=== PATIENT | female | born 1935 | race African-American/Black ===

== ENCOUNTER 2019-02-15 09:47 | Emergency (ER) | payer OTHER ==
[2019-02-15] MEDS ORDERED: MECLIZINE HCL 12.5 MG TAB ONE (10:51)
[2019-02-15] MEDS ORDERED: NA CHLORIDE 0.9% 500 ML ONE (10:51)
--- NOTE | 2019-02-15 11:12 | RAD REPORT ---
EXAM DESCRIPTION: CT - Head Brain Wo Cont - 02/15/2019 11:01 am CLINICAL HISTORY: Dizziness COMPARISON: None TECHNIQUE: Computed axial tomography of the head was obtained. IV contrast was not requested. All CT scans are performed using dose optimization technique as appropriate and may include automated exposure control or mA/KV adjustment according to patient size. FINDINGS: An intracranial bleed is not seen . The ventricles are normal in caliber. No extra-axial fluid collection is noted. Mild to moderate low-density areas within periventricular, deep and subcortical white matter likely r epresent ischemic changes secondary to small vessel disease. Fluid within the sinuses/ mastoids is not seen. IMPRESSION: No acute intracranial abnormality is seen. If patient's symptoms persist MRI of the bra in would be recommended.
[2019-02-15 11:45] LABS: BUN Blood Urea Nitrogen 22 mg/dL (7-18); Bicarbonate 27 mmol/L (21-32); Glucose Level 108 mg/dL (74-106); Potassium 4.3 mmol/L (3.5-5.1); Sodium Level 144 mmol/L (136-145); Troponin (Emerg Dept Use Only) < 0.02 ng/mL (0.0-0.045)
[2019-02-15 12:09] LABS: Absolute Lymphocytes (CBC) 1.2 K/uL (0.7-4.9); Basophils % 0.9 % (0-1.3); Hematocrit 35.1 % (36.0-45.0); Lymphocytes % 24.2 % (15.3-44.8); MPV 8.8 fL (7.6-11.3); RBC Red Blood Cell Count 3.84 M/uL (3.86-4.86)
[2019-02-15 12:18] LABS: Protime INR 0.99
[2019-02-15 12:54] LABS: Urine Blood NEGATIVE (NEG); Urine Glucose NEGATIVE (NEG); Urine Protein NEGATIVE (NEG); Urine Specific Gravity 1.015 (1.005-1.030)
--- NOTE | 2019-02-15 13:24 | RAD REPORT ---
EXAM DESCRIPTION: MRI - Brain Wo Cont - 02/15/2019 1:13 pm CLINICAL HISTORY: DIZZINESS, weakness, stroke-like symptoms COMPARISON: CT head February 15 TECHNIQUE: Sagittal T1-weighted images were obtained along with axial PD, heavily T2-weighted and T2 -FLAIR images. Axial DWI and ADC mapping sequences were also obtained along with coronal heavily T2-w eighted images. FINDINGS: No intracranial hemorrhage, mass or acute infarction. There is no edema or shift of midlin e structures. No extra-axial fluid collections. Masters-matter/white matter junction is preserved. Signa l voids are seen as a normal finding in the major intracranial vessels. Patient has mild to moderate atrophy change. Ventricles are in proportion to the volume loss. Moderat e chronic ischemic changes seen throughout the cerebral white matter and extending into each thalamus . Brainstem chronic ischemic change also present. Mastoid air cells and paranasal sinuses are clear. No globe or orbital content abnormality. IMPRESSION: No acute infarction. No hemorrhage, mass or other acute intracranial finding. Mild to moderate degrees of atrophy and chronic ischemic changes are present. Ventricles are in propo rtion to the amount of volume loss.
--- NOTE | 2019-02-15 13:32 | ER ---
Nurse's Notes [facility] Name: Madan Godinez Age: 84 yrs Sex: Female : 1935 Arrival Date: 02/15/2019 Time: 09:49 Bed 19 Private MD: Diagnosis: Dizziness and giddiness;Dehydration Presentation: 02/15 10:14 Presenting complaint: Patient states: Woke up feeling dizzy, daughter reports BP was jl7 178/100, denies nausea, denies SIEGEL, dizzy has resolved. Transition of care: patient was not received from another setting of care. Onset of symptoms is unknown. Risk Assessment: Do you want to hurt yourself or someone else? Patient reports no desire to harm self or others. Initial Sepsis Screen: Does the patient meet any 2 criteria? No. Patient's initial sepsis screen is negative. Does the patient have a suspected source of infection? No. Patient's initial sepsis screen is negative. Care prior to arrival: None. 10:14 Method Of Arrival: Wheelchair jl7 10:14 Acuity: TRAY 3 jl7 Historical: - Allergies: 10:17 PENICILLINS; jl7 - Home Meds: 10:17 None [Active]; jl7 - PMHx: 10:17 None; jl7 - PSHx: 10:17 None; jl7 - Immunization history:: Adult Immunizations not up to date. - Social history:: Smoking status: Patient/guardian denies using tobacco. - Ebola Screening: : No symptoms or risks identified at this time. - Family history:: not pertinent. - Hospitalizations: : No recent hospitalization is reported. Screenin:26 Abuse screen: Denies threats or abuse. Denies injuries from another. Nutritional ca1 screening: No deficits noted. Tuberculosis screening: No symptoms or risk factors identified. Fall Risk IV access (20 points). Ambulatory Aid- Crutches/Cane/Walker (15 pts). Total Quintana Fall Scale indicates Low Risk Score (25-44 pts). Fall prevention measures have been instituted. Side Rails Up X 2 Family Present and informed to notify staff if they need to leave bedside As available Patient and Family Educated on Fall Prevention Program and strategies. Assessment: 10:26 General: Appears in no apparent distress. comfortable, Behavior is calm, cooperative, ca1 appropriate for age. Pain: Denies pain. Neuro: Level of Consciousness is awake, alert, obeys commands, Oriented to person, place, time, situation, Ruby Software Developer are equal bilaterally Moves all extremities. Speech is normal, Facial symmetry appears normal, Pupils are PERRLA, Intact Reports dizziness, since one time this morning upon waking up. Cardiovascular: Heart tones S1 S2 present Capillary refill < 3 seconds Patient's skin is warm and dry. Rhythm is sinus rhythm. Respiratory: Airway is patent Respiratory effort is even, unlabored, Respiratory pattern is regular, symmetrical, Breath sounds are clear bilaterally. GI: Abdomen is round non-distended, Bowel sounds present X 4 quads. Abd is soft and non tender X 4 quads. Patient currently denies nausea. : No deficits noted. No signs and/or symptoms were reported regarding the genitourinary system. EENT: No signs and/or symptoms were reported regarding the EENT system. Derm: Skin is intact, is healthy with good turgor, Skin is pink, warm \T\ dry. Musculoskeletal: Circulation, motion, and sensation intact. Capillary refill < 3 seconds, Range of motion: intact in all extremities. 10:47 Reassessment: Instructed on NPO. ca1 10:53 Reassessment: Pt to CT. ca1 11:30 Reassessment: Patient appears in no apparent distress at this time. Patient and/or ca1 family updated on plan of care and expected duration. Pain level reassessed. 12:23 Reassessment: Patient appears in no apparent distress at this time. Patient is alert, ca1 oriented x 3, equal unlabored respirations, skin warm/dry/pink. Pt ambulated to restroom with slow steady gait. No nausea and dizziness reported. 12:48 Reassessment: Pt taken to MRI. ca1 13:30 Reassessment: Patient appears in no apparent distress at this time. Patient is alert, ca1 oriented x 3, equal unlabored respirations, skin warm/dry/pink. Family at bedside. Vital Signs: 10:17 BP 153 / 82; Pulse 66; Resp 15 S; Temp 98.2(O); Pulse Ox 98% on R/A; Pain 0/10; jl7 11:30 BP 144 / 79; Pulse 69; Resp 16 S; Pulse Ox 99% on R/A; ca1 12:25 BP 165 / 81; Pulse 58; Resp 17 S; Pulse Ox 100% on R/A; ca1 13:30 BP 159 / 79; Pulse 62; Resp 17 S; Pulse Ox 100% on R/A; ca1 ED Course: 09:49 Patient arrived in ED. as 10:16 Triage completed. jl7 10:17 Arm band placed on right wrist. Patient placed in an exam room, on a stretcher. jl7 10:24 Mendoza Barron MD is Attending Physician. rn 10:26 Tanja Brady, VERNON is Primary Nurse. ca1 10:26 Patient has correct armband on for positive identification. Placed in gown. Bed in low ca1 position. Call light in reach. Side rails up X2. shipping processor on. Pulse ox on. NIBP on. Warm blanket given. 10:26 No provider procedures requiring assistance completed. ca1 10:[address] via stretcher. ca1 10:53 EKG done, by multi craft maintenance technician. reviewed by Mendoza Barron MD. at1 11:15 Initial lab(s) drawn, by ri, sent to lab. Inserted saline lock: 22 gauge in right ca1 antecubital area, using aseptic technique. Blood collected. 11:20 CT Head Brain wo Cont In Process Unspecified. EDMS 12:33 Urine collected: clean catch specimen, clear, kenan colored. jp3 12:49 Patient moved to MRI via wheelchair. ca1 13:04 Brain Wo Cont MRI In Process Unspecified. EDMS 13:52 IV discontinued, intact, bleeding controlled, No redness/swelling at site. Pressure ca1 dressing applied. Administered Medications: 10:53 Drug: Meclizine 50 mg Route: PO; ca1 12:25 Follow up: Response: No adverse reaction; Marked relief of symptoms ca1 11:16 Drug: NS 0.9% 500 ml Route: IV; Rate: bolus; Site: right antecubital; ca1 12:25 Follow up: Urine output 90 ml; Response: No adverse reaction; IV Status: Completed ca1 infusion; IV Intake: 500ml Intake: 12:25 IV: 500ml; Total: 500ml. ca1 Output: 12:25 Urine: 90ml; Total: 90ml. ca1 Outcome: 13:31 Discharge ordered by MD. rn 13:52 Discharged to home ambulatory, with family. ca1 13:52 Condition: stable 13:52 Discharge instructions given to patient, Instructed on discharge instructions, follow up and referral plans. medication usage, Demonstrated understanding of instructions, follow-up care, medications, Prescriptions given X 1. 13:52 Patient left the ED. ca1 Signatures: Dispatcher [employer] Sydney Espinoza Roman, MD MD rn Marcela Baig, dividing machine operator helper EKG Tat1 Issac Wilson RN RN jl7 Asher Schaeffer jp3 Tanja Brady RN RN ca1 Corrections: (The following items were deleted from the chart) 11:03 10:26 Fall Risk IV access (20 points). ca1 ca1
--- NOTE | 2019-02-15 13:33 | EDPHYS ---
Physician Documentation [facility] Name: Madan Godinez Age: 84 yrs Sex: Female : 1935 Arrival Date: 02/15/2019 Time: 09:49 Bed 19 Private MD: ED Physician Mendoza Barron HPI: 02/15 11:10 This 84 yrs old Black Female presents to ER via Wheelchair with complaints of High rn Blood Pressure. 11:10 The patient has elevated blood pressure and discovered this at home. Onset: The rn symptoms/episode began/occurred this morning. Modifying factors:. Severity of symptoms: At its worst the blood pressure was moderate, in the emergency department the blood pressure is improved. The patient has experienced a previous episode. The patient has not recently seen a physician. Reports woke up this morning and when tried to get out of bed was very dizzy, fell back into bed, no LOC, no fever or head injury, dizzy when walking, no other focal neurological complaint, no vision or speech changes. . 11:10 Has had vertigo before in past. . rn Historical: - Allergies: 10:17 PENICILLINS; jl7 - Home Meds: 10:17 None [Active]; jl7 - PMHx: 10:17 None; jl7 - PSHx: 10:17 None; jl7 - Immunization history:: Adult Immunizations not up to date. - Social history:: Smoking status: Patient/guardian denies using tobacco. - Ebola Screening: : No symptoms or risks identified at this time. - Family history:: not pertinent. - Hospitalizations: : No recent hospitalization is reported. ROS: 11:10 Constitutional: Negative for fever, chills, and weight loss, Eyes: Negative for injury, rn pain, redness, and discharge, Neck: Negative for injury, pain, and swelling, Cardiovascular: Negative for chest pain, palpitations, and edema, Respiratory: Negative for shortness of breath, cough, wheezing, and pleuritic chest pain, Abdomen/GI: Negative for abdominal pain, nausea, vomiting, diarrhea, and constipation, MS/Extremity: Negative for injury and deformity, Skin: Negative for injury, rash, and discoloration, Neuro: Negative for headache, weakness, numbness, tingling, and seizure. Exam: 11:10 Constitutional: This is a well developed, well nourished patient who is awake, alert, rn and in no acute distress. Head/Face: Normocephalic, atraumatic. Eyes: Pupils equal round and reactive to light, extra-ocular motions intact. No nystagmus ENT: MMM Cardiovascular: Regular rate and rhythm. No pulse deficits. Respiratory: No increased work of breathing, no retractions or nasal flaring. Abdomen/GI: soft, non-tender MS/ Extremity: Pulses equal, no cyanosis. Neurovascular intact. Full, normal range of motion. Equal circumference. Neuro: Awake and alert, GCS 15, oriented to person, place, time, and situation. Cranial nerves II-XII grossly intact. Motor strength 5/5 in all extremities. Sensory grossly intact. Cerebellar exam normal. Vital Signs: 10:17 BP 153 / 82; Pulse 66; Resp 15 S; Temp 98.2(O); Pulse Ox 98% on R/A; Pain 0/10; jl7 11:30 BP 144 / 79; Pulse 69; Resp 16 S; Pulse Ox 99% on R/A; ca1 12:25 BP 165 / 81; Pulse 58; Resp 17 S; Pulse Ox 100% on R/A; ca1 13:30 BP 159 / 79; Pulse 62; Resp 17 S; Pulse Ox 100% on R/A; ca1 MDM: 10:24 Patient medically screened. rn 12:33 ED course: Pt improved, ambulatory to bathroom without assistance or difficulty. . rn 13:29 Differential diagnosis: hypertensive crisis, Malignant HTN, CVA, intracerebral rn hemorrhage, vertigo. Data reviewed: vital signs, nurses notes, lab test result(s), EKG, radiologic studies, CT scan, MRI, and as a result, I will discharge patient. Counseling: I had a detailed discussion with the patient and/or guardian regarding: the historical points, exam findings, and any diagnostic results supporting the discharge/admit diagnosis, lab results, radiology results, the need for outpatient follow up, to return to the emergency department if symptoms worsen or persist or if there are any questions or concerns that arise at home. Response to treatment: the patient's symptoms have markedly improved after treatment, and as a result, I will discharge patient. Special discussion: I discussed with the patient/guardian in detail that at this point there is no indication for admission to the hospital. It is understood, however, that if the symptoms persist or worsen the patient needs to return immediately for re-evaluation. Based on the history and exam findings, there is no indication for further emergent testing or inpatient evaluation. I discussed with the patient/guardian the need to see the neurologist for further evaluation of the symptoms. I discussed with the patient/guardian the need to see the primary care provider for further evaluation of the symptoms. ED course: Pt improved, ambulatory, ct head/bloodwork/UA/MRI brain negative, will dc home as dehydration and possible vertigo. Will dc home with meclizine and pcp f/u. . 02/15 10:42 Order name: Basic Metabolic Panel; Complete Time: 12:25 rn 02/15 10:42 Order name: CBC with Diff; Complete Time: 12:25 rn 02/15 10:42 Order name: Protime (+inr); Complete Time: 12:25 rn 02/15 10:42 Order name: Ptt, Activated; Complete Time: 12:25 rn 02/15 10:42 Order name: Troponin (emerg Dept Use Only); Complete Time: 12:25 rn 02/15 12:36 Order name: Urine Dipstick--Ancillary (enter results); Complete Time: 12:55 em1 02/15 10:42 Order name: CT Head Brain wo Cont; Complete Time: 11:38 rn 02/15 10:42 Order name: EKG; Complete Time: 10:43 rn 02/15 10:42 Order name: Cardiac monitoring; Complete Time: 10:45 rn 02/15 10:42 Order name: EKG - Nurse/Tech; Complete Time: 10:53 rn 02/15 10:42 Order name: IV Saline Lock; Complete Time: 11:21 rn 02/15 11:29 Order name: Brain Wo Cont MRI; Complete Time: 13:29 rn 02/15 10:42 Order name: Labs collected and sent; Complete Time: 11:21 rn 02/15 10:42 Order name: NPO; Complete Time: 10:45 rn 02/15 10:42 Order name: O2 Per Protocol; Complete Time: 10:45 rn 02/15 10:42 Order name: O2 Sat Monitoring; Complete Time: 10:45 rn 02/15 10:42 Order name: Urine Dipstick-Ancillary (obtain specimen); Complete Time: 12:34 rn Administered Medications: 10:53 Drug: Meclizine 50 mg Route: PO; ca1 12:25 Follow up: Response: No adverse reaction; Marked relief of symptoms ca1 11:16 Drug: NS 0.9% 500 ml Route: IV; Rate: bolus; Site: right antecubital; ca1 12:25 Follow up: Urine output 90 ml; Response: No adverse reaction; IV Status: Completed ca1 infusion; IV Intake: 500ml Disposition: 02/15/19 13:31 Discharged to Home. Impression: Dizziness and giddiness, Dehydration. - Condition is Stable. - Discharge Instructions: Dehydration, Adult, Dizziness. - Prescriptions for Meclizine 25 mg Oral Tablet - take 1 tablet by ORAL route every 8-12 hours As needed; 30 tablet. - Medication Reconciliation Form, Thank You Letter, Antibiotic Education, Prescription Opioid Use form. - Follow up: Private Physician; When: As needed; Reason: Recheck today's complaints, Re-evaluation by your physician. - Problem is new. - Symptoms have improved. Signatures: Dispatcher [employer] EDMS Mendoza Barron MD MD rn Leal, Jahala, RN RN jl7 Tanja Brady RN RN ca1 Corrections: (The following items were deleted from the chart) 13:52 13:31 02/15/2019 13:31 Discharged to Home. Impression: Dizziness and giddiness; ca1 Dehydration. Condition is Stable. Forms are Medication Reconciliation Form, Thank You Letter, Antibiotic Education, Prescription Opioid Use. Follow up: Private Physician; When: As needed; Reason: Recheck today's complaints, Re-evaluation by your physician. Problem is new. Symptoms have improved. rn
[2019-02-15 14:08] VITALS: TEMP 98.2
[2019-02-15 14:10] VITALS: O2SAT 100
[2019-02-15 14:11] VITALS: BP 159/79
--- NOTE | 2019-02-15 22:56 | EKG ---
Test Date: 2019-02-15 Test Time: 10:52:06 Telesales Specialist: ANGELICA MEASUREMENT RESULTS: Intervals: Rate: 56 [place]: 226 QRSD: 90 QT: 410 QTc: 395 [place]: P: -11 [place]: 226 QRS: -9 T: 50 INTERPRETIVE STATEMENTS: Sinus bradycardia with 1st degree AV block Minimal voltage criteria for LVH, may be normal variant Borderline ECG No previous ECG available for comparison Electronically Signed On 02-15-19 22:55:21 MEETING/EVENT PLANNER by Woo Bernal
== END 2019-02-15 13:52 | disposition home or self-care (01) ==
LOC: ER 09:47
DX: E86.0 Dehydration (principal); Z88.0 Allergy status to penicillin
CPT/HCPCS: 93005; 85025; 80048; 36415; 85610; 85730; 81003; 84484; 70450; 70551; 96360; 99285; J7040; J8597

== ENCOUNTER 2021-09-24 15:45 | Observation (INO) | payer OTHER ==
[2021-09-24 17:04] LABS: Protime INR 1.6
--- NOTE | 2021-09-24 17:04 | RAD REPORT ---
EXAM DESCRIPTION: CT - Ct Stroke Brain Wo Cont - 09/24/2021 4:57 pm CLINICAL HISTORY: acute LLE weakness CVA symptomology COMPARISON: Head Brain Wo Cont dated 02/15/2019; Brain Wo Cont dated 02/15/2019 TECHNIQUE: All CT scans are performed using dose optimization technique as appropriate and may inclu de automated exposure control or mA/KV adjustment according to patient size. FINDINGS: No intracranial hemorrhage, hydrocephalus or extra-axial fluid collection.Moderate diffuse brain atrophy with chronic periventricular and deep white matter chronic microvascular ischemia.No a reas of brain edema or evidence of midline shift. The paranasal sinuses and mastoids are clear. The calvarium is intact. IMPRESSION: No acute intracranial abnormality. If there is continued clinical concern for CVA, MR imaging of the brain would be recommended. The findings were discussed with Dr Pollock in the ER on 09/24/2021 at 5 p.m. by telephone.
[2021-09-24 17:06] LABS: Absolute Lymphocytes (CBC) 1.2 K/uL (0.7-4.9); Lymphocytes % 21.5 % (15.3-44.8); MCV 94.6 fL (80-100); MPV 8.9 fL (7.6-11.3); RBC Red Blood Cell Count 3.59 M/uL (3.86-4.86)
--- NOTE | 2021-09-24 17:31 | RAD REPORT ---
EXAM DESCRIPTION: RAD - Chest Single View - 09/24/2021 5:20 pm CLINICAL HISTORY: LLE weakness Chest pain. COMPARISON: No comparisons FINDINGS: Portable technique limits examination quality. The lungs are grossly clear. The heart is normal in size. No displaced fractures. IMPRESSION: No acute intrathoracic process suspected.
--- NOTE | 2021-09-24 17:32 | RAD REPORT ---
EXAM DESCRIPTION: RAD - Ankle Left 3 View - 09/24/2021 5:20 pm CLINICAL HISTORY: PAIN COMPARISON: No comparisons FINDINGS: Diffuse osteopenia. There is moderate soft tissue swelling involving the distal left leg a nd ankle. Small moderate posterior and plantar calcaneal spurs. No acute fracture seen.
--- NOTE | 2021-09-24 18:47 | ER ---
Nurse's Notes [facility] Name: Madan Godinez Age: 86 yrs Sex: Female : 1935 Arrival Date: 09/24/2021 Time: 15:55 Bed 27 Private MD: Shikha Conde Diagnosis: Weakness;L arm L leg weakness;Ataxia, unspecified Presentation: 09/24 16:04 Chief complaint: Patient's son or daughter states: pt was walking with walker and she iw fell , but she's dragging her left leg and she can barely stand and she's leaning to the left , noticed it yesterday but after she fell it was worse. Coronavirus screen: At this time, the client does not indicate any symptoms associated with coronavirus-19. Ebola Screen: Patient negative for fever greater than or equal to 101.5 degrees Fahrenheit, and additional compatible Ebola Virus Disease symptoms Patient denies exposure to infectious person. Patient denies travel to an Ebola-affected area in the 21 days before illness onset. No symptoms or risks identified at this time. Initial Sepsis Screen: Does the patient meet any 2 criteria? No. Patient's initial sepsis screen is negative. Does the patient have a suspected source of infection? No. Patient's initial sepsis screen is negative. Risk Assessment: Do you want to hurt yourself or someone else? Patient reports no desire to harm self or others. Onset of symptoms was September 23, 2021. 16:04 Method Of Arrival: Wheelchair iw 16:04 Acuity: TRAY 3 iw Triage Assessment: 16:35 General: Appears in no apparent distress. Behavior is calm, cooperative. jg9 Historical: - Allergies: 16:06 PENICILLINS; iw - Immunization history:: Adult Immunizations Client reports receiving the 2nd dose of the Covid vaccine, Pneumococcal vaccine is not up to date, Flu vaccine is not up to date. - Social history:: Smoking status: Patient denies any tobacco usage or history of. Screenin:28 Abuse screen: Denies threats or abuse. Denies injuries from another. Nutritional jg9 screening: No deficits noted. Tuberculosis screening: No symptoms or risk factors identified. Fall Risk Fall in past 12 months (25 points). 18:50 Patient has been NPO before screening. The patient is alert, able to follow commands. jg9 The patient does not exhibit slurred or garbled speech The patient is not exhibiting difficulty speaking. The patient does not exhibit difficulty understanding words. The patient is able to swallow own secretions with no drooling or need for suction. Patient tolerated one teaspoon of water. No drooling, immediate coughing, gurgling, or clearing of the throat was noted. The patient tolerated 90mL of water. No drooling, immediate coughing, gurgling, or clearing of the throat was noted. The patient passed the bedside swallow screening. Oral medications may be given as ordered. Contact Physician for further diet orders. Assessment: 18:28 Pain: Denies pain. jg9 Vital Signs: 16:04 BP 120 / 69; Pulse 71; Resp 16 S; Temp 97.2; Pulse Ox 97% on R/A; iw 17:45 BP 141 / 66; Pulse 55; Resp 16 S; Pulse Ox 99% on R/A; jg9 18:30 BP 143 / 59; Pulse 61; Resp 19; Pulse Ox 100% on R/A; jg9 ED Course: 15:55 Patient arrived in ED. am2 15:55 Shikha Conde FNP-C is Private Physician. am2 16:06 Triage completed. iw 16:08 Charbel Pollock MD is Attending Physician. jr11 16:35 Arm band placed on right wrist. jg9 16:40 Shikha Chadwick RN is Primary Nurse. jg9 16:45 Inserted saline lock: 22 gauge in right antecubital area, using aseptic technique. jg9 Blood collected. 16:59 CT Stroke Brain w/o Contrast In Process Unspecified. EDMS 17:22 Stroke CXR 1 View In Process Unspecified. EDMS 17:22 Ankle Left 3 View XRAY In Process Unspecified. EDMS 18:29 Patient has correct armband on for positive identification. Bed in low position. Call jg9 light in reach. Side rails up X 1. 18:46 Thalia Price MD is Hospitalizing Provider. jr11 Administered Medications: No medications were administered Outcome: 18:47 Decision to Hospitalize by Provider. jr11 21:45 Patient left the ED. tw5 Signatures: Dispatcher [employer] EDAnum Jones RN RN iw Marcela Gaytan am2 Shanelle Michele tw5 Shikha Chadwick, VERNON RN jg9 Charbel Pollock MD MD jr11
--- NOTE | 2021-09-24 18:48 | EDPHYS ---
Physician Documentation [facility] Name: Madan Goidnez Age: 86 yrs Sex: Female : 1935 Arrival Date: 09/24/2021 Time: 15:55 Bed 27 Private MD: Shikha Conde ED Physician Charbel Pollock HPI: 09/24 16:29 This 86 yrs old Black Female presents to ER via Wheelchair with complaints of General jr11 Weakness, Fall Injury. 16:29 Details of fall: The patient fell from an upright position, while walking, and struck a jr11 concrete surface. Onset: The symptoms/episode began/occurred just prior to arrival. Associated injuries: The patient sustained L ankle. Severity of symptoms: At their worst the symptoms were moderate, in the emergency department the symptoms are unchanged. Also per the daughter has been having weakness on her on her left side, has been dragging her left side and fell over to her left side. Patient is on Eliquis. No LOC from her fall.. Historical: - Allergies: 16:06 PENICILLINS; iw - Immunization history:: Adult Immunizations Client reports receiving the 2nd dose of the Covid vaccine, Pneumococcal vaccine is not up to date, Flu vaccine is not up to date. - Social history:: Smoking status: Patient denies any tobacco usage or history of. ROS: 16:29 All other systems are negative. jr11 Exam: 16:29 Constitutional: This is a well developed, well nourished patient who is awake, alert, jr11 and in no acute distress. Head/Face: Normocephalic, atraumatic. Eyes: Extra-ocular motions intact. Lids and lashes normal. Conjunctiva and sclera are non-icteric and not injected. Cornea within normal limits. Periorbital areas with no swelling, redness, or edema. ENT: Nares patent. No nasal discharge, no septal abnormalities noted. Oropharynx with no redness, swelling, or masses, exudates, or evidence of obstruction, uvula midline. Mucous membranes moist. Neck: Trachea midline, no thyromegaly or masses palpated, and no cervical lymphadenopathy. Supple, full range of motion without nuchal rigidity, or vertebral point tenderness. No Meningismus. Chest/axilla: Normal chest wall appearance and motion. Nontender with no deformity. No lesions are appreciated. Cardiovascular: Regular rate and rhythm with a normal S1 and S2. No gallops, murmurs, or rubs. Normal PMI, no JVD. No pulse deficits. Respiratory: Lungs have equal breath sounds bilaterally, clear to auscultation and percussion. No rales, rhonchi or wheezes noted. No increased work of breathing, no retractions or nasal flaring. Abdomen/GI: Soft, non-tender, with normal bowel sounds. No distension or tympany. No guarding or rebound. No evidence of tenderness throughout. Skin: Warm, dry with normal turgor. Normal color with no rashes, no lesions, and no evidence of cellulitis. MS/ Extremity: Pulses equal, no cyanosis. Neurovascular intact. Full, normal range of motion except L ankle with diffuse TTP, mild edema Neuro: Awake and alert, GCS 15, oriented to person, place, time, and situation. No gross motor or sensory deficits. NIHSS=2 from LUE and LLE drift Vital Signs: 16:04 BP 120 / 69; Pulse 71; Resp 16 S; Temp 97.2; Pulse Ox 97% on R/A; iw 17:45 BP 141 / 66; Pulse 55; Resp 16 S; Pulse Ox 99% on R/A; jg9 18:30 BP 143 / 59; Pulse 61; Resp 19; Pulse Ox 100% on R/A; jg9 MDM: 16:10 Patient medically screened. [facility] 16:29 Differential diagnosis: abrasion, closed head injury, contusion, multiple trauma, jr11 sprain, strain. Data reviewed: vital signs, nurses notes. ED course: EKG interpreted by me shows normal sinus rhythm, left axis deviation, prolonged MD at [address] changes.. ED course: Patient is an 86-year-old female here with left side weakness, NIH stroke shows equal to 2, not a tPA candidate given that she is on Eliquis. Will speak with neurologist after work-up.. 18:44 ED course: Pt with L sided weakness, per neuro Julio admit for MRI, PT/OT. Not a TPA jr candidate. . 09/24 16:28 Order name: Basic Metabolic Panel; Complete Time: 19:01 [facility] 09/24 16:28 Order name: CBC with Diff; Complete Time: 17:17 09/24 16:28 Order name: Protime (+inr); Complete Time: 17:11 09/24 16:28 Order name: Ptt, Activated; Complete Time: 17:11 09/24 16:28 Order name: CT Stroke Brain w/o Contrast; Complete Time: 17:11 09/24 16:28 Order name: COVID-19 SARS RT PCR (Document "Date of Onset" if Symptomatic); Complete Time: 18:57 09/24 16:28 Order name: Stroke CXR 1 View; Complete Time: 18:05 09/24 16:28 Order name: EKG; Complete Time: 16:29 09/24 16:28 Order name: Cardiac monitoring; Complete Time: 16:43 09/24 16:28 Order name: EKG - Nurse/Tech; Complete Time: 16:43 09/24 16:28 Order name: IV Saline Lock; Complete Time: 18:24 09/24 16:28 Order name: Labs collected and sent; Complete Time: 18:24 09/24 16:32 Order name: Ankle Left 3 View XRAY; Complete Time: 18:05 09/24 16:28 Order name: NPO; Complete Time: 18:24 09/24 16:28 Order name: O2 Per Protocol; Complete Time: 18:24 09/24 16:28 Order name: O2 Sat Monitoring; Complete Time: 16:44 09/24 16:28 Order name: Stroke Swallow Screen; Complete Time: 18:25 Administered Medications: No medications were administered Disposition Summary: 09/24/21 18:47 Hospitalization Ordered Hospitalization Status: Observation [facility] Provider: Thalia Price [facility] Location: Telemetry/MedSurg (observation) [facility] Condition: Stable [facility] Problem: new 11 Symptoms: are unchanged 11 Bed/Room Type: Standard [facility] Room Assignment: 216(09/24/21 21:06) Diagnosis - Weakness jr11 - L arm L leg weakness jr11 - Ataxia, unspecified jr11 Forms: - Medication Reconciliation Form jr11 - SBAR form 11 Signatures: Dispatcher [employer] EDMS Aparna Evans RN RN mw Williams, Irene, RN RN iw Gilmore, Jennifer, RN RN jg9 Charbel Pollock MD MD jr11 Brooklyn Siegel PA PA sb3 Corrections: (The following items were deleted from the chart) 16:31 16:29 Constitutional: This is a well developed, well nourished patient who is awake, jr11 alert, and in no acute distress. Head/Face: Normocephalic, atraumatic. Eyes: Extra-ocular motions intact. Lids and lashes normal. Conjunctiva and sclera are non-icteric and not injected. Cornea within normal limits. Periorbital areas with no swelling, redness, or edema. ENT: Nares patent. No nasal discharge, no septal abnormalities noted. Oropharynx with no redness, swelling, or masses, exudates, or evidence of obstruction, uvula midline. Mucous membranes moist. Neck: Trachea midline, no thyromegaly or masses palpated, and no cervical lymphadenopathy. Supple, full range of motion without nuchal rigidity, or vertebral point tenderness. No Meningismus. Chest/axilla: Normal chest wall appearance and motion. Nontender with no deformity. No lesions are appreciated. Cardiovascular: Regular rate and rhythm with a normal S1 and S2. No gallops, murmurs, or rubs. Normal PMI, no JVD. No pulse deficits. Respiratory: Lungs have equal breath sounds bilaterally, clear to auscultation and percussion. No rales, rhonchi or wheezes noted. No increased work of breathing, no retractions or nasal flaring. Abdomen/GI: Soft, non-tender, with normal bowel sounds. No distension or tympany. No guarding or rebound. No evidence of tenderness throughout. Skin: Warm, dry with normal turgor. Normal color with no rashes, no lesions, and no evidence of cellulitis. MS/ Extremity: Pulses equal, no cyanosis. Neurovascular intact. Full, normal range of motion. Neuro: Awake and alert, GCS 15, oriented to person, place, time, and situation. No gross motor or sensory deficits. NIHSS=2 from LUE and LLE drift jr11 18:24 16:28 Accucheck ordered. [facility] jg9 21:06 18:47 jr mw
[2021-09-24 18:59] LABS: Potassium 3.7 mmol/L (3.5-5.1)
--- NOTE | 2021-09-24 19:41 | P.HP ---
Certification for Inpatient Patient admitted to: Observation With expected LOS: <2 Midnights Patient will require the following post-hospital care: None Practitioner: I am a practitioner with admitting privileges, knowledge of patient current condition, hospital course, and medical plan of care. Services: Services provided to patient in accordance with Admission requirements found in Title 42 Section 412.3 of the Code of Federal Regulations <Brooklyn Siegel - Last Filed: 09/24/21 22:48> Patient History Date of Service: 09/24/21 Reason for admission: CVA R/O History of Present Illness: Patient is an 86-year-old female with hypertension, hyperlipidemia and history of DVT on Eliquis who presented to the ED with daughter with complaints of left- sided weakness. Daughter reports that she noticed patient's left leg was dragging while walking and she fell onto her left side. No LOC. CT brain negative for acute processes. Labs, vitals, and EKG WNL. NIHSS 2 given LUE and LLE drift. No other deficits noted. Neurology was contacted but not recommend TNK as patient takes eliquis daily. He wishes for patient to be admitted for observation with MRI stroke protocol in the morning. Home medications list reviewed: Yes - Past Medical/Surgical History Diabetic: No -: Hypertension -: Hyperlipidemia -: DVT Past Surgical History: Patient denies surgical history Psychosocial/ Personal History: Patient lives at home with her daughter. - Family History Father -: Hypertension - Social History Smoking Status: Never smoker Alcohol use: No CD- Drugs: No Caffeine use: Yes Place of Residence: Home <[place] - Last Filed: 09/24/21 22:48> Date of Service: 09/24/21 <Thalia Price - Last Filed: 10/04/21 00:28> Allergies Penicillins Allergy (Verified 09/24/21 22:08) Anaphylaxis Home Medications: Apixaban [Eliquis] 5 mg PO BID 09/24/21 Donepezil HCl [Aricept] 10 mg PO BEDTIME 09/24/21 Lisinopril [Zestril] 10 mg PO DAILY 09/24/21 Nitrofuran Macro [Macrobid*] 100 mg PO BID #14 cap 09/25/21 Review of Systems Neurological: Weakness <Brooklyn Siegel - Last Filed: 09/24/21 22:48> Physical Examination - Physical Exam General: Alert, In no apparent distress HEENT: Atraumatic, PERRLA, EOMI, Sclerae nonicteric Neck: Supple, 2+ carotid pulse no bruit, No LAD, Without JVD or thyroid abnormality Respiratory: Clear to auscultation bilaterally, Normal air movement Cardiovascular: Regular rate/rhythm, Normal S1 S2 Gastrointestinal: Normal bowel sounds, No tenderness Musculoskeletal: No tenderness Integumentary: No rashes Neurological: Normal speech, Sensation intact, Normal affect, Abnormal strength - Studies Laboratory Data (last 24 hrs) 09/24/21 18:25: Sodium 144, Potassium 3.7, BUN 16, Creatinine 0.96, Glucose 121 H 09/24/21 16:50: PT 17.8 H, INR 1.60, APTT 36.0 09/24/21 16:50: WBC 5.6, Hgb 11.0 L, Hct 34.0 L, Plt Count 218 <Brooklyn Siegel - Last Filed: 09/24/21 22:48> Assessment and Plan - Problems (Diagnosis) (1) Left-sided weakness Status: Acute (2) Anticoagulant long-term use Status: Acute (3) Hyperlipidemia Status: Acute Qualifiers: Hyperlipidemia type: unspecified Qualified Code(s): E78.5 - Hyperlipidemia, unspecified (4) Hypertension Status: Chronic Qualifiers: Hypertension type: primary hypertension Qualified Code(s): I10 - Essential (primary) hypertension - Plan -Neuro checks overnight -MRI stroke protocol in morning -Neurology consulted -Reconcile and continue home medications -Continue home eliquis for VTE ppx -Full code Discharge Plan: Home Plan to discharge in: 24 Hours - Advance Directives Does patient have a Living Will: No Does patient have a Durable POA for Healthcare: No - Code Status/Comfort Care Code Status Assessed: Yes (Full) Critical Care: No Time Spent Managing Pts Care (In Minutes): 50 <Brooklyn Siegel - Last Filed: 09/24/21 22:48>
[2021-09-24] MEDS: APIXABAN 5 MG TABLET PO SCH (21:00)
[2021-09-24] MEDS ORDERED: ACETAMINOPHEN 500 MG TAB PO PRN (21:41)
[2021-09-24] MEDS ORDERED: ONDANSETRON 4 MG/2 ML VIAL IV PRN (21:41)
[2021-09-24 22:08] VITALS: BMI 21.6
[2021-09-25 06:16] LABS: Potassium 3.8 mmol/L (3.5-5.1)
[2021-09-25] MEDS ORDERED: POTASSIUM CL SA 10 MEQ TAB PO ONE (09:00)
[2021-09-25] MEDS: APIXABAN 5 MG TABLET PO SCH ×2 (09:08→20:12)
--- NOTE | 2021-09-25 09:22 | RAD REPORT ---
EXAM DESCRIPTION: MRI - MRA Head Wo Cont - 09/25/2021 8:46 am CLINICAL HISTORY: Left-side weakness COMPARISON: None. TECHNIQUE: Axial and coronal 3D [id number] image acquisition was performed. 3D rotational images were generated with source and reconstruction images reviewed. Horizontal and vertical axis rotation al views generated using MIP protocol. FINDINGS: No aneurysm or vascular malformation. Vertebrobasilar tortuosity is present without stenos is. 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 Ri ght anterior cerebral artery A1 segment is small as a normal variant. Bilateral posterior communicati ng arteries are present. No significant stenoses in the anterior or middle cerebral artery distributions. Patient has bilatera l small posterior cerebral arteries. Atherosclerotic changes are present. No named branch occlusion or vasculitis. Flow voids seen in the distal internal carotid arteries are believed to be artifacts and not thrombus . The contrast opacified MRA neck images extended to the cavernous ICA region with no filling defects seen. IMPRESSION: Atherosclerotic changes are identified but no named branch occlusion, vasculitis or othe r emergent MRA Head finding.
--- NOTE | 2021-09-25 09:44 | RAD REPORT ---
EXAM DESCRIPTION: MRI - Brain W/Wo Cont - 09/25/2021 8:46 am CLINICAL HISTORY: left sided weakness COMPARISON: MRA Head Wo Cont dated 09/25/2021; Ct Stroke Brain Wo Cont dated 09/24/2021; MRA Neck W/Wo Cont dated 09/25/2021 TECHNIQUE: Sagittal and axial T1-weighted images were obtained. Axial PD/heavily T2-weighted and T2- FLAIR images were obtained along with axial DWI/ADC mapping sequences. Coronal heavily T2 weighted s equence obtained. Axial and coronal post-contrast T1-weighted images were also obtained. A 13 ml Mul tihance contrast following utilized. FINDINGS: No intracranial hemorrhage, mass or acute infarction. There is no edema or shift of midli ne structures. No extra-axial fluid collections. Masters-matter/white matter junction is preserved. Sig nal voids are seen as a normal finding in the major intracranial vessels. Patient has moderate severity atrophy for age. Ventricles are in proportion to the volume loss. T2/IR signal abnormalities are seen throughout each cerebral hemisphere extending into each thalamus and i nto the ángela. This chronic ischemic pattern matches the CT study. Post-contrast images show normal enhancement. No dural thickening. Mastoid air cells and paranasal sinuses are clear. No acute bone finding. Patient has normal variant hyperostosis frontalis interna. IMPRESSION: No acute intracranial finding identifiable. Moderate severity atrophy with ventricles in proportion to volume loss. Prominent chronic ischemic ch anges seen throughout each cerebral hemisphere, bilateral thalami and ángela.
--- NOTE | 2021-09-25 09:46 | RAD REPORT ---
EXAM DESCRIPTION: MRI - MRA Neck W/Wo Cont - 09/25/2021 8:45 am CLINICAL HISTORY: Left-sided weakness COMPARISON: None TECHNIQUE: MR angiography of the cervical vasculature performed. Coronal imaging plane acquisition u tilized. A 13 MultiHance contrast volume was utilized. Coronal reformatted images were generated and reviewed. Vertical axis 3D rotational projections obtained using maximum intensity projection protoco l. FINDINGS: Aortic arch is 3 vessel configuration with no origins stenosis. There is tortuosity of the great vessels and vertebral arteries. Imaged portions of the subclavian arteries are unremarkable. N o vertebral artery origins stenosis seen. Vertebral arteries are codominant. Bilateral common carotid arteries show tortuosity but no dissection, stenosis or significant abnormal ity. Internal carotid arteries are also tortuous but without dissection, stenosis or significant find ing. Basilar artery is unremarkable. IMPRESSION: MRA neck imaging shows tortuosity of the vasculature but no stenosis, dissection or sign ificant atherosclerotic change identifiable.
[2021-09-25 11:39] LABS: Albumin 2.8 g/dL (3.4-5.0); Bilirubin Direct 0.6 mg/dL (0-0.2); Bilirubin Total 0.9 mg/dL (0.2-1.0); Protein, Total 7.1 g/dL (6.4-8.2)
[2021-09-25] MEDS: HYDRALAZINE HCL 20 MG/ML VIAL IV PRN (17:18)
--- NOTE | 2021-09-25 18:41 | RAD REPORT ---
EXAM DESCRIPTION: MRI - Lumbar Spine Wo Con - 09/25/2021 3:05 pm CLINICAL HISTORY: Left foot drop. Ataxia COMPARISON: None. TECHNIQUE: Sagittal T1, T2 and STIR weighted sequences were obtained. Axial T1 and T2 sequences were obtained through the lumbar disc levels. FINDINGS: Mild posterior subluxation L1 on L2. Mild spondylosis Mild spondylosis L2-3 and L3-4. Schmorl's node invaginating vertebral endplate of L2 Disc bulge, ligamentum flavum and facet hypertrophy L3-4. Minimal narrowing of thecal sac. Mild to mo derate narrowing of left neural foramina Mild anterior subluxation L4 on L5. Disc bulge, ligamentum flavum facet hypertrophy. Mild to moderate narrowing left neural foramina L5-S1 unremarkable Increased signal is present within the T10 vertebral body. 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 It is recommended that the patient have an MRI with contrast of lower thoracic spine for further evaluation
--- NOTE | 2021-09-25 19:26 | CON ---
Consultation called because of left lower extremity weakness. History Of Present Illness: Ms. Godinez is an 86-year-old right-handed patient with hy pertension, dyslipidemia, and a deep vein thrombosis, treated with Eliquis, who comes to [facility] on Tuesday with left leg weakness and falling. The patient herself noted weakness a few we eks ago, but did not notify the daughter. Her daughter, who was at bedside, said Tuesday, she was trying to walk and noted the left leg was dragging, and at one point when she tried to accompany the daughter to her physician visit, she said at one point she was next to her, the next moment she fell due to left lower extremity weakness. At [facility], head CT scan was negative for any acut e ischemic or hemorrhagic change. The study identified moderate chronic small-vessel ischemic diseas e. NIH stroke scale is 2 given left lower extremity weakness. There was report of the left upper ex tremity weakness, but not necessarily substantiated by the patient herself. There was a drift noted and perhaps loss of sensation on the left compared to right. The patient was not a candidate for tPA since her onset of symptoms is well beyond 4.5 hours . Furthermore, she was on Eliquis, w hich would contraindicate the use of tNKs or tPA. She was admitted for stroke workup. Her brain MRI identified chronic small-vessel ischemic disease with compensatory atrophy and ventricular dilatatio n suggests compensatory ventricular dilatation with cerebral atrophy. In addition, there was small-v essel disease noted in the thalamus and ángela and this was comparable to the findings on CT scan of [facility] head. Her magnetic resonance angiogram of her brain showed arthrosclerotic changes, but no named b ranch occlusion, no evidence of vasculitis, or any acute findings such as thrombus. Magnetic resonan ce angiogram of her neck showed no evidence of stenosis, dissection, or significant arthrosclerosis. Chest x-ray showed no acute cardiothoracic processes. X-ray of the ankle, which was slightly swolle n on the left, showed diffuse osteopenia, moderate soft tissue swelling involving the distal leg and ankle, small moderate posterior and plantar calcaneal spurs. Her laboratory study included a complet e blood count with differential, which shows essentially unremarkable except for slightly low hemoglo bin and hematocrit. INR 1.6. Her liver function studies were elevated with AST 371, ALT 422, and al kaline phosphate was elevated to 719. Kidney function was normal. Creatinine 0.76. She had a low a lbumin and pre-albumin and COVID testing was negative. Since hospitalization, she denies any worseni ng weakness in left lower extremity, perhaps slightly improved. She did ambulate with physical thera pist 150 feet with a rolling walker and contact guard assistance. She denies loss of balance. Past Medical History: As noted. Allergies: PENICILLIN. Medications: At home, Eliquis 5 mg twice daily, Atorvastatin 40 mg at bedtime, Aricept 10 mg at bedt darius, and Zestril 10 mg daily. Family History: Positive for hypertension in father. Social History: No alcohol, tobacco, or IV drugs. She does drink sodas including Sprite and some ca ffeinated beverages. Review of Systems: As noted, weakness in the left lower extremity longer than 1 week and that resulted in the tripping a nd falling due to left footdrop. Otherwise, a 10 point systems review is negative aside from problem s with memory and thinking and language and expression and comprehension. Physical Examination: Vital Signs: Blood pressure 131/63, pulse 64, respiratory rate 18, temperature 98.6, and oxygen satu ration 97% on room air. Weight 130 pounds, height 5 feet 5 inches, BMI 21.6. General: Ms. Godinez is sitting in a chair beside the bed. She is covered in blankets. Her daughter a nd are in the room. HEENT: She is normocephalic and atraumatic. Sclerae are anicteric. Oropharynx is pink and moist. Neck: Supple. Chest: Clear. Heart: Regular. Extremities: Show no significant edema or cyanosis. Her left lower extremity is atrophic compared t o the right in the area of the tibialis anterior. Neurological: She is alert and oriented to situation and person. She has decreased verbal fluency, but no talon expressive or receptive aphasias. On cranial nerve exam, no obvious focal deficits on 2 through 12. On motor examination, in the upper extremity, on the right 5/5 strength, on the left 5- /5 in the upper extremity proximally and distally; in the lower extremity, she is a 4+ for hip extens ion and knee extension and she is 2 to 3 for dorsiflexion on the left foot, plantar flexion is 4+ to 5/5 in the right lower extremity. She is 5/5 proximally and distally. Sensory exam, slight decrease d light touch temperature in the left lower compared to her right lower extremity and the left and ri ght upper extremity are intact. Coordination intact in upper and lower extremities. Reflexes are bi ceps, triceps are 1+; at the right patella she has 2 and at the left 0; and at the right heel 1, and at the left 0. Gait, she ambulated with a rolling walker, contact guard assistance. Did not fall or lose balance while covering 120 feet. Assessment: Ms. Godinez is an 86-year-old patient with a possible lumbar etiology for left lower footdr op versus a peripheral neuropathy recent involving perhaps the peroneal nerve at the fibular head. A lso, there may be a lumbar 5 level compression producing a footdrop. She does not have evidence of a ny acute ischemic stroke on MRI of brain. No evidence of infection, however, she does have significa nt liver dysfunction and should be evaluated further. Plan: 1.MRI of the lumbar spine without contrast. 2.She should ambulate with a walker at all times. 3.She may benefit from aggressive inpatient rehabilitation in the hospital fifth floor inpatient uni t. 4.She may maintain the Eliquis for DVT, Lipitor for dyslipidemia, and antihypertensive medications a s appropriate. 5.Once the patient's disposition is determined, if she is discharged home, follow up with Dr. Dane marie's office within a month. If she is able to go to the fifth floor unit, she will have rehabilitati on done upstairs, either way rehabilitation should be done. LB/MODL Voice ID: [id number] Report ID: [id number]
[2021-09-25] MEDS ORDERED: ATORVASTATIN 40 MG TAB PO SCH (21:00)
[2021-09-25] MEDS ORDERED: DONEPEZIL HCL 5 MG TAB PO SCH (21:00)
[2021-09-26 05:03] LABS: Potassium 3.8 mmol/L (3.5-5.1)
[2021-09-26] MEDS ORDERED: POTASSIUM CL SA 10 MEQ TAB PO ONE (07:30)
[2021-09-26] MEDS ORDERED: lisinopriL 10 MG TAB PO SCH (09:00)
--- NOTE | 2021-09-26 09:05 | EKG ---
Test Date: 2021-09-24 Test Time: 16:18:06 Thread Grinder Tool: CINDA MEASUREMENT RESULTS: Intervals: Rate: 68 MS: 266 QRSD: 136 QT: 426 QTc: 452 [place]: P: 67 MS: 266 QRS: -24 T: 43 INTERPRETIVE STATEMENTS: Sinus rhythm with 1st degree AV block with premature atrial complexes with aberrant conduction Right bundle branch block Abnormal ECG Compared to ECG 02/15/2019 10:52:06 Atrial premature complex(es) now present Aberrant conduction of supraventricular beat(s) now present Right bundle-branch block now present Sinus bradycardia no longer present Left ventricular hypertrophy no longer present Electronically Signed On 09-26-21 09:03:06 CDT by Toro Bishop
[2021-09-26 09:52] LABS: Albumin 2.9 g/dL (3.4-5.0); Bilirubin Direct 0.7 mg/dL (0-0.2); Bilirubin Total 1.2 mg/dL (0.2-1.0); Protein, Total 7.3 g/dL (6.4-8.2)
[2021-09-26 10:31] LABS: Protime INR 1.41
[2021-09-26] MEDS: HYDRALAZINE HCL 20 MG/ML VIAL IV PRN (11:34)
[2021-09-26 12:00] VITALS: O2SAT 96
--- NOTE | 2021-09-26 12:34 | RAD REPORT ---
EXAM DESCRIPTION: US - Abdomen Exam Complete - 09/26/2021 12:10 pm CLINICAL HISTORY: elevated liver enzymes COMPARISON: <Comparisons> FINDINGS: Gallbladder size is normal. No gallstones, wall thickening or pericholecystic fluid. Commo n bile duct is normal with no common duct stone identified. Liver and spleen are normal size. No focal lesions identified. Doppler evaluation shows no portal vei n abnormality. The pancreas is unremarkable. No hydronephrosis or suspicious mass in either kidney. Fullness of the right renal pelvis is present without hydronephrosis. Left kidney was difficult to visualize. Aorta is 2.3 cm diameter proximally with the mid aortic tapering to 1.6 cm. There is focal bulging of the distal aorta 2.4 cm. No dissection or significant mural thrombus identifiable. IMPRESSION: No gallbladder or biliary tree abnormality. Liver size is normal with no focal lesion. Distal abdominal aorta bulges 2.4 cm. No dissection or measurable mural thrombus within the aorta.
[2021-09-26] MEDS: APIXABAN 5 MG TABLET PO SCH (13:16)
[2021-09-26 13:48] VITALS: TEMP 97.5
[2021-09-26 14:16] VITALS: BP 141/69
--- OUTSIDE RECORDS SUMMARY | 2021-10-01 06:12 | XMS REPORT | Continuity of Care Document ---
:1935 Author Organization [facility] t Address [address] [place] [address] Care Team Providers Name Role Phone A_Hemant Attending Clinician Unavailable A_Danielrd Admitting Clinician Unavailable Payers Payer Name Policy Type Policy Number Effective Date Expiration Date S niecy [employer] (MEDICARE [id number] REPLACEMENT/ADVANTAG E - PPO) [employer] [place] - [id number] 2020 [employer] 00:00:00 (MEDICARE REPLACEMENT HMO) Problems This patient has no known problems. Allergies, Adverse Reactions, Alerts This patient has no known allergies or adverse reactions. Medications This patient has no known medications. Procedures This patient has no known procedures. Encounters Start End Encounter Admission Attending Care Care Encounter Source Date/Time Date/Time Type Type Clinicians Facility Department ID 2019-12-03 2019-12-03 Outpatient A[facility] [id number] [place] 12:23:00 12:23:00 [facility] 2019-12-03 2019-12-03 Outpatient A_Byrd [facility] [id number] [place] 12:23:00 12:23:00 [facility] Results This patient has no known results.
--- NOTE | 2021-10-04 00:30 | P.PN ---
Subjective Date of Service: 09/25/21 Subjective: Improving Clinical symptoms are improving. MRI of the brain was negative for CVA. Continue with MRI L-spine abdominal ultrasound prior to discharge. Review of Systems 10-point ROS is otherwise unremarkable Physical Examination - Vital Signs Temperature: 97.5 F Blood Pressure: 141/69 Pulse: 70 Respirations: 14 Pulse Ox (%): 97 - Physical Exam General: Alert, In no apparent distress HEENT: Atraumatic, PERRLA, EOMI Neck: Supple, JVD not distended Respiratory: Clear to auscultation bilaterally, Normal air movement Cardiovascular: Regular rate/rhythm, Normal S1 S2 Gastrointestinal: Normal bowel sounds, No tenderness Musculoskeletal: No tenderness Integumentary: No rashes Neurological: Normal speech, Normal tone, Normal affect Lymphatics: No axilla or inguinal lymphadenopathy - Studies Medications List Reviewed: Yes Assessment & Plan - Problems (Diagnosis) (1) Hyperlipidemia Status: Acute Qualifiers: Hyperlipidemia type: unspecified Qualified Code(s): E78.5 - Hyperlipidemia, unspecified (2) Left-sided weakness Status: Acute (3) Hypertension Status: Resolved Qualifiers: Hypertension type: primary hypertension Qualified Code(s): I10 - Essential (primary) hypertension - Plan MRI of the brain was negative. At this time will continue with MRI of the L- spine and abdominal ultrasound as well. At this time anticipate discharge home if workup is negative. Discharge Plan: Home Plan to discharge in: 24 Hours - Advance Directives Does patient have a Living Will: No Does patient have a Durable POA for Healthcare: No - Code Status/Comfort Care Code Status Assessed: Yes Code Status: Full Code Critical Care: No Time Spent Managing PTS Care (In Minutes): 34
--- NOTE | 2021-10-04 00:32 | P.DS ---
Discharge Date: 09/26/21 Disposition: DC HOME/HOME HEALTH CARE Discharge Condition: GOOD Reason for Admission: CVA R/O - Problems (1) Hyperlipidemia Status: Acute Qualifiers: Hyperlipidemia type: unspecified Qualified Code(s): E78.5 - Hyperlipidemia, unspecified (2) Left-sided weakness Status: Acute (3) Hypertension Status: Resolved Qualifiers: Hypertension type: primary hypertension Qualified Code(s): I10 - Essential (primary) hypertension Brief History of Present Illness: Patient is an 86-year-old female with hypertension, hyperlipidemia and history of DVT on Eliquis who presented to the ED with daughter with complaints of left- sided weakness. Daughter reports that she noticed patient's left leg was dragging while walking and she fell onto her left side. No LOC. CT brain negative for acute processes. Labs, vitals, and EKG WNL. NIHSS 2 given LUE and LLE drift. No other deficits noted. Neurology was contacted but not recommend TNK as patient takes eliquis daily. He wishes for patient to be admitted for observation with MRI stroke protocol in the morning. Hospital Course: Patient had significant workup including MRI of the L-spine which was negative for acute abnormalities. Patient also had abdominal ultrasound which revealed a small AAA but no other abnormalities. Liver function testing were improving. We have held off on statin therapy because of the elevation in liver function testing. She will need repeat testing done in 1-2 weeks. Patient clinically doing much better at this time is stable for discharge with home health. Vital Signs/Physical Exam: Temp Pulse Resp BP Pulse Ox 97.5 F 70 14 141/69 H 97 10/04/21 00:30 10/04/21 00:30 10/04/21 00:30 10/04/21 00:30 10/04/21 00:30 General: Alert, In no apparent distress, Oriented x3 Laboratory Data at Discharge: WBC 5.6 K/uL (4.3-10.9) 09/24/21 16:50 Hgb 11.0 g/dL (12.0-15.0) L 09/24/21 16:50 Hct 34.0 % (36.0-45.0) L 09/24/21 16:50 Plt Count 218 K/uL (152-406) 09/24/21 16:50 PT 15.6 SECONDS (9.5-12.5) H 09/26/21 09:15 INR 1.41 09/26/21 09:15 APTT 38.6 SECONDS (24.3-36.9) H 09/26/21 09:15 Sodium 142 mmol/L (136-145) 09/26/21 04:14 Potassium 3.8 mmol/L (3.5-5.1) 09/26/21 04:14 BUN 14 mg/dL (7-18) 09/26/21 04:14 Creatinine 0.74 mg/dL (0.55-1.3) 09/26/21 04:14 Glucose 83 mg/dL (74-106) 09/26/21 04:14 Total Bilirubin 1.2 mg/dL (0.2-1.0) H 09/26/21 09:15 AST 375 U/L (15-37) H* 09/26/21 09:15 ALT 408 U/L (12-78) H* 09/26/21 09:15 Alkaline Phosphatase 801 U/L (45-117) H 09/26/21 09:15 Home Medications: Apixaban [Eliquis] 5 mg PO BID 09/24/21 Donepezil HCl [Aricept] 10 mg PO BEDTIME 09/24/21 Lisinopril [Zestril] 10 mg PO DAILY 09/24/21 Nitrofuran Macro [Macrobid*] 100 mg PO BID #14 cap 09/25/21 New Medications: Nitrofuran Macro [Macrobid*] 100 mg PO BID #14 cap Physician Discharge Instructions: -DC IV and DC home -Follow-up with PCP in 1 to 2 weeks -Because of elevated liver function test; patient will need outpatient liver function tests rechecked in 2 to 4 weeks -Follow-up with Cardiology and Neurology in 1 to 2 weeks -Please call Dr. Price at [phone] if any questions regarding hospital stay -Please call nursing station at [phone] if any nursing or medication questions -Return to the emergency room if symptoms worsen -Refrain from alcohol use. Refrain from Tylenol/acetaminophen use. Diet: AHA Activity: Fall precautions Followup: Shikha Conde [employer] [Primary Care Provider] - (Call to schedule appointment.) Time spent managing pt's care (in minutes): 35
== END 2021-09-26 14:45 | disposition home health service (06) ==
LOC: ER 15:45 → EDBD 15:45 → ERHOLD 19:45 → 2ND 21:16
PROVIDERS: ADMIT Hospitalist; ATTEND Hospitalist
DX: R53.1 Weakness (principal); W19.XXXA Unspecified fall, initial encounter; I10 Essential (primary) hypertension; E78.5 Hyperlipidemia, unspecified; R27.0 Ataxia, unspecified; I67.89 Other cerebrovascular disease; M21.372 Foot drop, left foot; I71.4 Abdominal aortic aneurysm, without rupture; M85.872 Other specified disorders of bone density and structure, left ankle and foot; M77.32 Calcaneal spur, left foot; Z86.718 Personal history of other venous thrombosis and embolism; Z79.01 Long term (current) use of anticoagulants; Z79.899 Other long term (current) drug therapy; Z88.0 Allergy status to penicillin; Z20.822 Contact with and (suspected) exposure to COVID-19; Z82.49 Family history of ischemic heart disease and other diseases of the circulatory system
CPT/HCPCS: 93005; 85025; 80048 ×3; 36415 ×2; 82140; 85610 ×2; 80076 ×2; 85730 ×2; 70450; 71045; 73610; 72148; 70553; 70544; 70549; 76700; 97110; 97116; 97161; 99283; U0003; A9577; J0360 ×2; G0378 ×3

== ENCOUNTER 2021-10-03 14:37 | Emergency (ER) | payer OTHER ==
--- OUTSIDE RECORDS SUMMARY | 2021-10-03 14:40 | XMS REPORT | Continuity of Care Document ---
:[address] [facility] t Address [address] [place] [address] Care Team Providers Name Role Phone A_Hemant Attending Clinician Unavailable A_Danielrd Admitting Clinician Unavailable Payers Payer Name Policy Type Policy Number Effective Date Expiration Date S ourmumtaz [employer] (MEDICARE [id number] REPLACEMENT/ADVANTAG E - PPO) [employer] [place] - [id number] 2020 [employer] 00:00:00 (MEDICARE REPLACEMENT HMO) Problems This patient has no known problems. Allergies, Adverse Reactions, Alerts This patient has no known allergies or adverse reactions. Medications This patient has no known medications. Procedures This patient has no known procedures. Encounters Start End Encounter Admission Attending Care Care Encounter Source Date/Time Date/Time Type Type Clinicians Facility Department ID 2019-12-03 2019-12-03 Outpatient A[facility]rd [facility] [id number] [place] 12:23:00 12:23:00 [facility] 2019-12-03 2019-12-03 Outpatient A_Byrd [facility] [id number] [place] 12:23:00 12:23:00 12[facility] Results This patient has no known results.
--- NOTE | 2021-10-03 16:26 | RAD REPORT ---
EXAM DESCRIPTION: RAD - Chest Single View - 10/03/2021 4:21 pm CLINICAL HISTORY: SOB COMPARISON: Chest Single View dated 09/24/2021 FINDINGS: Lines: None. Lungs: No evidence of edema or pneumonia. Pleural: No significant pleural effusions or pneumothorax. Cardiac: The heart size is within normal limits. Bones: No acute fractures. Other: IMPRESSION: No acute cardiopulmonary disease.
[2021-10-03 16:42] LABS: Urine Blood Negative (Negative); Urine Glucose Negative (Negative); Urine Protein Negative (Negative); Urine Specific Gravity 1.015 (1.005-1.030)
[2021-10-03 16:46] LABS: Albumin 3.2 g/dL (3.4-5.0); Bilirubin Total 0.8 mg/dL (0.2-1.0); Magnesium 1.8 mg/dL (1.8-2.4); Potassium 4.2 mmol/L (3.5-5.1); Protein, Total 7.3 g/dL (6.4-8.2); Troponin High Sensitivity 26.9 pg/mL (<58.9)
[2021-10-03 17:04] LABS: Urine Bacteria <20 /HPF (<20); Urine RBC <5 /HPF (None Seen)
[2021-10-03 20:27] LABS: Absolute Lymphocytes (CBC) 2.1 K/uL (0.7-4.9); Lymphocytes % 42.2 % (15.3-44.8); MCV 93.1 fL (80-100); MPV 8.7 fL (7.6-11.3); RBC Red Blood Cell Count 3.76 M/uL (3.86-4.86)
--- NOTE | 2021-10-03 20:40 | ER ---
Nurse's Notes [facility] Name: Madan Godinez Age: 86 yrs Sex: Female : 1935 Arrival Date: 10/03/2021 Time: 14:39 Bed 6 Private MD: Shikha Conde Diagnosis: Muscle weakness (generalized);Dyspnea Presentation: 10/03 14:49 Chief complaint: Patient states: denies CP, stated difficulty breathing when moving vg1 around. Chief complaint: Patient's son or daughter states: noticed last night that pt was having difficulty walking stated "she gets real tired when she gets up to walk around and this morning it looked like she was having a hard time breathing" Stated pt was in the hospital a week ago for a UTI. Coronavirus screen: Vaccine status: Patient reports receiving the 2nd dose of the covid vaccine. Client denies travel out of the [place] in the last 14 days. Ebola Screen: Patient denies exposure to infectious person. Patient denies travel to an Ebola-affected area in the 21 days before illness onset. Initial Sepsis Screen: Does the patient meet any 2 criteria? No. Patient's initial sepsis screen is negative. Does the patient have a suspected source of infection? No. Patient's initial sepsis screen is negative. Risk Assessment: Do you want to hurt yourself or someone else? Patient reports no desire to harm self or others. Onset of symptoms was October 02, 2021. 14:49 Method Of Arrival: Wheelchair vg1 14:49 Acuity: TRAY 3 vg1 Triage Assessment: 14:52 General: Appears in no apparent distress. Behavior is quiet. Pain: Denies pain. Neuro: vg1 Level of Consciousness is awake, alert, obeys commands, Oriented to person, place, time, situation. Respiratory: Reports shortness of breath on exertion Onset: The symptoms/episode began/occurred yesterday, the patient has mild shortness of breath. Historical: - Allergies: 14:57 PENICILLINS; jl7 - Home Meds: 14:52 donepezil oral [Active]; Eliquis oral [Active]; Lisinopril Oral [Active]; vg1 - PMHx: 14:52 Hypertensive disorder; DVT; vg1 - Immunization history:: Adult Immunizations up to date. - Social history:: Smoking status: Patient denies any tobacco usage or history of. Screenin:59 Abuse screen: Denies threats or abuse. Denies injuries from another. Nutritional bp screening: No deficits noted. Tuberculosis screening: No symptoms or risk factors identified. Fall Risk None identified. Assessment: 14:59 General: SEE TRIAGE NOTE. bp 15:43 Reassessment: UNABLE TO OBTAIN BLOOD SPECIMEN. PHLEBOTOMY CONTACTED. bp 16:44 Reassessment: No changes from previously documented assessment. Patient and/or family bp updated on plan of care and expected duration. Pain level reassessed. Cardiovascular: Rhythm is sinus rhythm. Respiratory: Airway is patent Respiratory effort is even, unlabored, Breath sounds are clear bilaterally. 17:50 Reassessment: No changes from previously documented assessment. Patient and/or family bp updated on plan of care and expected duration. Pain level reassessed. Vital Signs: 14:49 BP 141 / 83; Pulse 69; Resp 16; Temp 99.0(TE); Pulse Ox 98% on R/A; Weight 58.97 kg; vg1 Height 5 ft. 4 in. (162.56 cm); Pain 0/10; 14:59 BP 179 / 94; Pulse 78; Resp 16; Pulse Ox 97% ; bp 15:43 BP 161 / 122; Pulse 63; Resp 16; Pulse Ox 100% ; bp 16:44 BP 180 / 88; Pulse 52; Resp 16; Pulse Ox 97% ; bp 17:50 BP 175 / 80; Pulse 57; Resp 16; Pulse Ox 98% ; bp 20:31 BP 161 / 82; Pulse 56; Resp 18 S; Pulse Ox 96% on R/A; as6 14:49 Body Mass Index 22.31 (58.97 kg, 162.56 cm) vg1 ED Course: 14:39 Patient arrived in ED. mr 14:39 Shikha Conde is Private Physician. mr 14:46 Rosie Chinchilla is Attending Physician. sd2 14:51 Triage completed. vg1 14:52 Arm band placed on. vg1 14:54 Wilmar Mendieta, RN is Primary Nurse. bp 14:59 Patient has correct armband on for positive identification. Bed in low position. Call bp light in reach. Side rails up X2. Adult w/ patient. 15:43 Inserted saline lock: 22 gauge in left antecubital area, using aseptic technique. bp 16:23 XRAY Chest (1 view) In Process Unspecified. EDMS 19:56 Attending Physician role handed off by Rosie Chinchilla sd2 19:56 Ambrocio Gonzalez DO is Attending Physician. sd2 20:39 Shikha Conde is Referral Physician. ms3 21:00 No provider procedures requiring assistance completed. IV discontinued, intact, as6 bleeding controlled, No redness/swelling at site. Pressure dressing applied. Administered Medications: No medications were administered Medication: 14:59 VIS not applicable for this client. bp Outcome: 20:40 Discharge ordered by MD. ms3 21:00 Discharged to home via wheelchair, with family. as6 21:00 Condition: stable 21:00 Discharge instructions given to patient, family, Instructed on discharge instructions, follow up and referral plans. Demonstrated understanding of instructions, follow-up care. 21:01 Patient left the ED. as6 Signatures: Dispatcher [employer] EDMO Rangel Valerie quesada WilsonIssac, RN RN jl7 Wilmar Mendieta RN RN Rosario Reno RN RN vg1 Ambrocio Gonzalez DO DO ms3 Krunal Varghese RN RN as6 Rosie Chinchilla sd2 Corrections: (The following items were deleted from the chart) 14:52 14:49 Chief complaint: Patient's son or daughter states: noticed last night that pt was vg1 having difficulty walking stated "she gets real tired when she gets up to walk around and this morning it looked like she was having a hard time breathing" vg1 14:52 14:49 Chief complaint: Patient states: denies CP, stated difficulty breathing when vg1 moving around vg1
--- NOTE | 2021-10-03 20:40 | EDPHYS ---
Physician Documentation [facility] Name: Madan Godinez Age: 86 yrs Sex: Female : 1935 Arrival Date: 10/03/2021 Time: 14:39 Bed 6 Private MD: Shikha Conde ED Physician Ambrocio Gonzalez HPI: 10/03 15:06 This 86 yrs old Black Female presents to ER via Wheelchair with complaints of Breathing sd2 Difficulty. 15:06 86 yo F presents with CC of SOB. First noticed by daughter last night. Pt reports no sd2 SOB at rest only with exertion. Denies any associated fever, cough, congestion, chest pain, vomiting or diarrhea. Endorses associated lightheadedness. Pt recently admitted and discharged 1 week ago for UTI and r/o CVA with negative MRI. Finished last dose of antibiotics today. Has been compliant with her Eliquis for DVT. . Historical: - Allergies: 14:57 PENICILLINS; jl7 - Home Meds: 14:52 donepezil oral [Active]; Eliquis oral [Active]; Lisinopril Oral [Active]; vg1 - PMHx: 14:52 Hypertensive disorder; DVT; vg1 - Immunization history:: Adult Immunizations up to date. - Social history:: Smoking status: Patient denies any tobacco usage or history of. ROS: 15:06 Constitutional: Negative for fever, chills, and weight loss, Eyes: Negative for injury, sd2 pain, redness, and discharge, Cardiovascular: Negative for chest pain, palpitations, and edema, Respiratory: Positive for shortness of breath. Negative for cough, wheezing. Abdomen/GI: Negative for abdominal pain, nausea, vomiting, diarrhea. : Negative for dysuria, urinary frequency, hesitancy, urgency and hematuria. MS/Extremity: Negative for injury and deformity, Skin: Negative for injury, rash, and discoloration, Neuro: Negative for headache, numbness and tingling. Hematologic/Lymphatic: Negative for swollen nodes, abnormal bleeding, and unusual bruising. Exam: 15:06 Constitutional: This is a well developed, well nourished patient who is awake, alert, sd2 and in no acute distress. Head/Face: Normocephalic, atraumatic. Eyes: EOMI, normal conjunctiva bilaterally Chest/axilla: Normal chest wall appearance and motion. Nontender with no deformity. Cardiovascular: Regular rate and rhythm with a normal S1 and S2. No gallops, murmurs, or rubs. 2+ distal pulses. Respiratory: Lungs have equal breath sounds bilaterally, clear to auscultation and percussion. No rales, rhonchi or wheezes noted. No increased work of breathing, no retractions or nasal flaring. Abdomen/GI: Soft, non-tender, with normal bowel sounds. No guarding or rebound. No evidence of tenderness throughout. Skin: Warm, dry with normal turgor. Normal color with no rashes, no lesions, and no evidence of cellulitis. MS/ Extremity: Pulses equal, no cyanosis. Neurovascular intact. Full, normal range of motion. Ambulatory without difficulty. Neuro: Awake and alert, GCS 15, oriented to person, place, time, and situation. Cranial nerves II-XII grossly intact. Motor strength 5/5 in all extremities. Sensory grossly intact. Psych: Awake, alert, with orientation to person, place and time. Behavior, mood, and affect are within normal limits. 16:01 ECG was reviewed by the Attending Physician. NSR, rate 60, 1st degree AV block, RBBB sd2 present, no STEMI criteria Vital Signs: 14:49 BP 141 / 83; Pulse 69; Resp 16; Temp 99.0(TE); Pulse Ox 98% on R/A; Weight 58.97 kg; vg1 Height 5 ft. 4 in. (162.56 cm); Pain 0/10; 14:59 BP 179 / 94; Pulse 78; Resp 16; Pulse Ox 97% ; bp 15:43 BP 161 / 122; Pulse 63; Resp 16; Pulse Ox 100% ; bp 16:44 BP 180 / 88; Pulse 52; Resp 16; Pulse Ox 97% ; bp 17:50 BP 175 / 80; Pulse 57; Resp 16; Pulse Ox 98% ; bp 20:31 BP 161 / 82; Pulse 56; Resp 18 S; Pulse Ox 96% on R/A; as6 14:49 Body Mass Index 22.31 (58.97 kg, 162.56 cm) vg1 MDM: 15:05 Patient medically screened. sd2 15:06 Differential diagnosis: Anemia asthma, Bronchitis CHF exacerbation, Chronic Obstructive sd2 Pulmonary Disease Myocardial Infarction pneumonia, Pneumothorax pulmonary edema, Pulmonary Embolism reactive airway disease, among others. 15:06 Data reviewed: vital signs, nurses notes. sd2 19:18 ED course: Pt ambulatory pulse ox 100% on RA with no significant increased WOB. Does sd2 have some weakness and requires assistance. VS have remained stable. Labs grossly WNCL. Trop neg. EKG with no ischemic changes. CXR clear. Procal not consistent with bacterial infection. 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 Low suspicion for PE at this time. Pending CBC. Care of patient signed over to Dr. Gonzalez at this time.. 20:59 Counseling: I had a detailed discussion with the patient and/or guardian regarding: the ms3 historical points, exam findings, and any diagnostic results supporting the discharge/admit diagnosis, lab results, radiology results, the need for outpatient follow up, to return to the emergency department if symptoms worsen or persist or if there are any questions or concerns that arise at home. ED course: On reevaluation patient is alert and oriented x4, in no apparent distress, nontoxic-appearing, speaking full sentences, ambulatory in emergency department. . 10/03 15:06 Order name: CBC with Diff; Complete Time: 20:38 10/03 15:06 Order name: CMP; Complete Time: 17:14 10/03 15:06 Order name: Magnesium; Complete Time: 17:14 10/03 15:06 Order name: Troponin High Sensitivity; Complete Time: 17:14 10/03 15:06 Order name: BNP; Complete Time: 17:14 10/03 15:06 Order name: Procalcitonin; Complete Time: 17:14 10/03 15:06 Order name: EKG - Nurse/Tech; Complete Time: 15:38 10/03 15:06 Order name: XRAY Chest (1 view); Complete Time: 17:14 10/03 15:06 Order name: Urine Dipstick-Ancillary (obtain specimen); Complete Time: 16:37 10/03 15:06 Order name: Urine Microscopic Only; Complete Time: 17:14 10/03 16:42 Order name: Urine Dipstick-Ancillary; Complete Time: 17:14 EDID 10/03 18:57 Order name: Misc. Order: Recollect lavender top; Complete Time: 20:28 jl7 Administered Medications: No medications were administered Disposition Summary: 10/03/21 20:40 Discharge Ordered Location: Home ms3 Condition: Stable ms3 Diagnosis - Muscle weakness (generalized) ms3 - Dyspnea ms3 Followup: ms3 - With: Shikha Conde - When: 2 - 3 days - Reason: Discharge Instructions: - Discharge Summary Sheet ms3 - Weakness ms3 - Shortness of Breath, Adult, [id number] ms3 Forms: - Medication Reconciliation Form ms3 - Thank You Letter ms3 - Antibiotic Education ms3 - Prescription Opioid Use ms3 Signatures: Dispatcher [employer] Issac Pereyra RN RN jl7 Rosario Smalls RN RN 1 Ambrocio Gonzaelz DO DO ms3 Rosie Chinchilla sd2
[2021-10-03 21:19] VITALS: TEMP 99
[2021-10-03 21:28] VITALS: BP 161/82; O2SAT 96
--- NOTE | 2021-10-05 09:30 | EKG ---
Test Date: 2021-10-03 Test Time: 15:20:41 Demand Equipment Repairer: BP MEASUREMENT RESULTS: Intervals: Rate: 60 AK: 242 QRSD: 124 QT: 456 QTc: 456 [place]: P: 69 AK: 242 QRS: -29 T: 38 INTERPRETIVE STATEMENTS: Sinus rhythm with 1st degree AV block Right bundle branch block Abnormal ECG Compared to ECG 09/24/2021 16:18:06 Atrial premature complex(es) no longer present Aberrant conduction of supraventricular beat(s) no longer present Electronically Signed On 10-05-21 09:25:08 CDT by Toro Bishop
== END 2021-10-03 21:01 | disposition home or self-care (01) ==
LOC: ER 14:37
DX: R06.00 Dyspnea, unspecified (principal); M62.81 Muscle weakness (generalized); I10 Essential (primary) hypertension; Z86.718 Personal history of other venous thrombosis and embolism; Z79.01 Long term (current) use of anticoagulants; Z88.0 Allergy status to penicillin
CPT/HCPCS: 36415; 71045; 80053; 81003; 81015; 83735; 83880; 84145; 84484; 85025; 93005; 99284

== ENCOUNTER 2022-12-11 22:01 | Inpatient (IN) | payer OTHER ==
--- OUTSIDE RECORDS SUMMARY | 2022-12-11 22:05 | XMS REPORT | Continuity of Care Document ---
:1935 Author Organization [facility] t Address [address] [place] [address]. [address] [place] [address] Care Team Providers Name Role Phone Ladarius Aaron Rahil Attending Clinician Unavailable [id number] Attending Clinician Unavailable LILIA ZAVALA Attending Clinician Unavailable A_Byrd Attending Clinician Unavailable Ladarius Aaron Rahil Admitting Clinician Unavailable [id number] Admitting Clinician Unavailable LADARIUS AARON Admitting Clinician Unavailable A_Byrd Admitting Clinician Unavailable Payers Payer Name Policy Type Policy Number Effective Date Expiration Date S niecy [facility] [id number] [facility] [id number] [employer] (MEDICARE [id number] REPLACEMENT/ADVANTAG E - PPO) [facility] [id number] 2020 [employer] 00:00:00 (MEDICARE REPLACEMENT HMO) Problems This patient has no known problems. Allergies, Adverse Reactions, Alerts Allergy Allergy Status Severity Reaction(s) Onset Inactive Treating Comm ents Source Name Type Date Date Clinician NKA Allergy Active ENCCLR 11-27 12:33: 44 NKA Allergy Active ENCCLR 11-27 12:33: 44 Medications This patient has no known medications. Procedures This patient has no known procedures. Encounters Start End Encounter Admission Attending Care Care Encounter Source Date/Time Date/Time Type Type Clinicians Facility Department ID 2022-07-02 Outpatient 3 MAGED Aaron SUDHEER [id number] [facility] 15:19:26 Ladarius [facility] 2021-11-02 Outpatient 3 [id number] ENCPL REF [id number] [facility] 14:30:10 [facility] [place] 2022-07-04 2022-07-23 Inpatient 3 MAGED Aaron BIN [id number] [facility] 14:31:00 12:45:00 Ladarius [facility] [place] 2021-11-27 2022-02-26 Outpatient RECERTIFIC ZAVALA, ENCCLR ENCCLR [id number] ENCCLR 00:00:00 00:00:00 ATION LILIA 2021-11-27 2021-11-27 Outpatient NEW ZAVALA, ENCCLR ENCCLR [id number] EN[facility] 00:00:00 00:00:00 ADMISSION LILIA 2021-11-03 2021-11-21 [place] 3 [place] [id number] [facility] 19:45:00 11:05:00 Ladarius [facility] [place] 2019-12-03 2019-12-03 Outpatient A_Byrd MMG MMG [id number] [place] 12:23:00 12:23:00 [facility] 2019-12-03 2019-12-03 Outpatient A_Byrd MMG MMG [id number] [place] 12:23:00 12:23:00 [facility] Results This patient has no known results.
[2022-12-11 23:22] LABS: Absolute Lymphocytes (CBC) 2.1 K/uL (0.7-4.9); Hematocrit 34.3 % (36.0-45.0); Lymphocytes % 41.3 % (15.3-44.8); MCV 95.8 fL (80-100); MPV 8.7 fL (7.6-11.3); Platelets 151 thou/uL (152-406); RBC Red Blood Cell Count 3.58 M/uL (3.86-4.86)
[2022-12-11 23:44] LABS: Albumin 3.5 g/dL (3.4-5.0); Bilirubin Direct 0.1 mg/dL (0-0.2); Bilirubin Indirect, Calculated 0.3 mg/dL (0.2-0.8); Bilirubin Total 0.4 mg/dL (0.2-1.0); Magnesium 1.6 mg/dL (1.6-2.4); Potassium 3.9 mEq/L (3.5-5.1); Troponin High Sensitivity 22.4 pg/mL (<58.9)
[2022-12-12 00:21] LABS: Specific Gravity 1.017 (1.005-1.030); Urine Bacteria None Seen /HPF (<20); Urine Bilirubin NEGATIVE (Negative); Urine Blood 1+ (Negative); Urine Clarity Clear (Clear); Urine Color Light-Yellow (Yellow); Urine Glucose NEGATIVE (Negative); Urine Mucus Slight /HPF (None Seen); Urine Protein 1+ (Negative); Urine Urobilinogen Normal (Normal); Urine pH 6.5 (5.0-7.0)
--- NOTE | 2022-12-12 00:52 | EDPHYS ---
Physician Documentation [facility] Name: Madan Godinez Age: 87 yrs Sex: Female : 1935 Arrival Date: 12/11/2022 Time: 22:01 Bed 14 Private MD: ED Physician Greg Christine HPI: 12/12 00:19 This 87 yrs old Black Female presents to ER via Wheelchair with complaints of Altered rt Mental Status. 00:19 Patient presents to the ED with altered mental status. The daughter first noticed about rt 5 morning, the patient was confused, was clenching her right hand, leaning to the left side. She stated that the patient is normally conversant and coherent was not making any sense with her speech. Denies other acute complaints at this time. Symptoms are moderate in severity, no other aggravating or alleviating factors.. Historical: - Allergies: 12/11 23:32 PENICILLINS; pf1 - PMHx: 23:32 Dementia; DVT; Hypercholesterolemia; Hypertensive disorder; pf1 - PSHx: 23:32 None; pf1 - Immunization history:: Adult Immunizations up to date, Client reports receiving the 2nd dose of the Covid vaccine, Last tetanus immunization: > 10 years ago Flu vaccine is not up to date. - Social history:: Smoking status: Patient denies any tobacco usage or history of. Patient/guardian denies using alcohol, street drugs. - Family history:: not pertinent. ROS: 12/12 00:19 Unable to obtain ROS due to altered mental status, rt Exam: 00:19 Constitutional: This is a well developed, well nourished patient who is awake, alert, rt and in no acute distress. Head/Face: Normocephalic, atraumatic. Chest/axilla: Normal chest wall appearance and motion. Nontender with no deformity. No lesions are appreciated. Cardiovascular: Regular rate and rhythm with a normal S1 and S2. No gallops, murmurs, or rubs. Normal PMI, no JVD. No pulse deficits. Respiratory: Lungs have equal breath sounds bilaterally, clear to auscultation and percussion. No rales, rhonchi or wheezes noted. No increased work of breathing, no retractions or nasal flaring. Abdomen/GI: Soft, non-tender, with normal bowel sounds. No distension or tympany. No guarding or rebound. No evidence of tenderness throughout. MS/ Extremity: Pulses equal, no cyanosis. Neurovascular intact. Full, normal range of motion. 00:19 Neuro: Left-sided facial droop, mild contracture noted to the right hand, strength and sensation intact in upper and lower extremities. Patient with mumbling speech, difficult to understand., 00:26 ECG was reviewed by the Attending Physician. rt Vital Signs: 12/11 22:26 BP 192 / 99; Pulse 66; Resp 15; Temp 98.9; Pulse Ox 100% on R/A; Weight 47.4 kg; Height pf1 5 ft. 4 in. ; Pain 0/10; 12/12 00:42 BP 184 / 86; Pulse 78; Resp 16; Pulse Ox 100% ; bp 01:42 BP 201 / 110; Pulse 69; Resp 16; Pulse Ox 100% ; bp 03:00 BP 122 / 75; Pulse 89; Resp 15; Pulse Ox 100% ; bp 12/11 22:26 Body Mass Index 17.94 (47.40 kg, 162.56 cm) pf1 12/11 22:26 Pain Scale: Adult pf1 NIH Stroke Scale Scores: 00:00 NIHSS Score: 5 bp MDM: 12/11 22: Patient medically screened. snw 12/12 00:26 Differential Diagnosis: CVA, hypoglycemia, intracranial bleed. Data reviewed: vital rt signs, nurses notes, lab test result(s), EKG, radiologic studies. Consideration of Admission/Observation Patient was admitted/placed on observation. Management of patient was discussed with the following: Hospitalist: Agrees to admit. Independent interpretation of the following test(s) in the Emergency Department CT Scan: My interpretation is No hemorrhage seen on interpretation of the CT scan images. Historians other than the Patient: Daughter/Son: . Care significantly affected by the following chronic conditions: Hypertension. Counseling: I had a detailed discussion with the patient and/or guardian regarding the historical points, exam findings, and any diagnostic results supporting the discharge/admit diagnosis, lab results, radiology results, the need for further work-up and treatment in the hospital. 12/11 22:33 Order name: Basic Metabolic Panel; Complete Time: 00:17 rt 12/11 22:33 Order name: CBC with Diff; Complete Time: 00:17 rt 12/11 22:33 Order name: LFT's; Complete Time: 00:17 rt 12/11 22:33 Order name: Magnesium; Complete Time: 00:17 rt 12/11 22:33 Order name: Troponin HS; Complete Time: 00:17 rt 12/11 22:33 Order name: UAM; Complete Time: 00:22 rt 12/12 02:22 Order name: Basic Metabolic Panel EDMS 12/12 02:22 Order name: Basic Metabolic Panel EDMS 12/12 02:22 Order name: Basic Metabolic Panel EDMS 12/12 02:22 Order name: CBC with Automated Diff EDMS 12/12 02:22 Order name: CBC with Automated Diff EDMS 12/12 02:22 Order name: CBC with Automated Diff EDMS 12/12 02:22 Order name: Lipid Profile EDMS 12/12 02:22 Order name: Lipid Profile EDMS 12/12 02:22 Order name: Hemoglobin A1c EDMS 12/12 02:22 Order name: T4,Total EDMS 12/12 02:22 Order name: Thyroid Stimulating Hormone EDMS 12/12 14:30 Order name: Vitamin B12 Level EDMS 12/12 18:46 Order name: Ammonia EDMS 12/11 22:33 Order name: XRAY Chest (1 view) rt 12/11 22:33 Order name: CT Head Brain wo Cont rt 12/12 00:26 Order name: CT Head Angio la1 12/12 00:26 Order name: CT Neck Angio la1 12/12 02:21 Order name: Echo with Doppler EDMS 12/12 02:21 Order name: Brain Wo Cont EDMS 12/11 22:33 Order name: EKG; Complete Time: 22:34 rt 12/12 02:21 Order name: Heart Healthy EDMS 12/12 02:22 Order name: Physical Therapy Consult EDMS 12/12 02:22 Order name: Speech Therapy Consult EDMS 12/11 22:33 Order name: Cardiac monitoring; Complete Time: 22:47 rt 12/11 22:33 Order name: EKG - Nurse/Tech; Complete Time: 23:16 rt 12/11 22:33 Order name: IV Saline Lock; Complete Time: 23:20 rt 12/11 22:33 Order name: Labs collected and sent; Complete Time: 23:16 rt 12/11 22:33 Order name: O2 Per Protocol; Complete Time: 22:47 rt 12/11 22:33 Order name: O2 Sat Monitoring; Complete Time: 22:47 rt 12/12 00:27 Order name: Swallow Screen; Complete Time: 00:58 la1 12/12 00:27 Order name: Misc. Order: document NIH score; Complete Time: 00:42 la EC:26 Rate is 59 beats/min. Rhythm is regular, 1st Degree Block with No ectopy, Right bundle rt branch block. QRS [place] is Normal. DE interval is normal. QRS interval is normal. QT interval is normal. No Q waves. Administered Medications: :58 Drug: Aspirin PO Chewable Tablet 324 mg PO once; 81 mg tablets x 4 Route: PO; bp 02:12 Follow up: Response: No adverse reaction bp 02:05 Drug: hydrALAZINE IVP 10 mg IVP once Route: IVP; Site: right forearm; bp Disposition Summary: 12/12/22 00:51 Hospitalization Ordered Notes: Hospitalization Status: Observation rt Provider: Paco Townsend rt Condition: Stable rt Problem: new rt Symptoms: are unchanged rt Bed/Room Type: Standard rt Location: Telemetry/MedSurg (observation)(12/12/22 17:51) [facility] Room Assignment: [facility](12/12/22 17:51) [facility] Diagnosis - Altered mental status rt Forms: - Medication Reconciliation Form rt - SBAR form rt - Leadership Thank You Letter rt NIH Stroke Scale - NIH Stroke Score Date: 12/12/2022 Time: 00:00 Total Score = 5 10. Dysarthria (speech clarity - read or repeat words) - 1(Mild to Moderate) 11. Extinction and Inattention (visual/tactile/auditory/spatial/personal) - 0(No abnormality) 1a. Level of Consciousness (LOC) - 1(Not Alert) 1b. Level of Consciousness (LOC) (Month \T\ Age) - 2(Neither) 1c. LOC Commands (Open \T\ Closes Eyes/Boat Canvas Maker Installer) - 0(Both) 2. Best Gaze (Lateral Gaze Paresis) - 0(Normal) 3. Visual Field Loss - 0(No visual loss) 4. Facial Palsy - 1(Minor Paralysis) 5a. Left Arm: Motor (10-second hold) - 0(No drift) 5b. Right Arm: Motor (10-second hold) - 0(No drift) 6a. Left Leg: Motor (5-second hold - always test supine) - 0(No drift) 6b. Right Leg: Motor (5-second hold - always test supine) - 0(No drift) 7. Limb Ataxia (finger/nose \T\ heel/lainez - test with eyes open) - 0(Absent) 8. Sensory Loss (pinprick arms/legs/face) - 0(Normal) 9. Best Language: Aphasia (description/naming/reading) - 0(No aphasia) Initials: bp Signatures: Dispatcher [employer] EDMS Minal Pike, OIL FIELD OPERATOR-C OIL FIELD OPERATOR-Csnw Griffin Stephens OIL FIELD OPERATOR-C OIL FIELD OPERATOR-Cla1 Flaca Smalls, VERNON JUNIOR cg Charbel Talley RN RN hugh1 Wilmar Mendieta RN RN bp [place], Ryan, MD MD rt Taya Mcdaniels RN RN pf1 Corrections: (The following items were deleted from the chart) 02:06 00:51 Telemetry/MedSurg (observation) rt cg 02:06 00:51 rt cg 17:51 02:06 [facility] ER HOLD cg ja1 17:51 02:06 ERHOLD- cg ja1
--- NOTE | 2022-12-12 00:52 | ER ---
Nurse's Notes [facility] Name: Madan Godinez Age: 87 yrs Sex: Female : 1935 Arrival Date: 12/11/2022 Time: 22:01 Bed 14 Private MD: Diagnosis: Altered mental status Presentation: 12/11 22:26 Chief complaint: Patient's son or daughter states: AMS, onset this AM at 0500. Daughter pf1 stated patient was trying to climb out of bed, was talking and not making sense, leaning to the left side and having hands clenched. Daughter stated had to pry the patients hands opened. 22:26 Coronavirus screen: Vaccine status: Patient reports receiving the 2nd dose of the covid pf1 vaccine. [employer] Client denies travel out of the [place] in the last 14 days. At this time, the client does not indicate any symptoms associated with coronavirus-19. Ebola Screen: Patient negative for fever greater than or equal to 101.5 degrees Fahrenheit, and additional compatible Ebola Virus Disease symptoms. Initial Sepsis Screen: Does the patient meet any 2 criteria? No. Patient's initial sepsis screen is negative. Does the patient have a suspected source of infection? No. Patient's initial sepsis screen is negative. Risk Assessment: Do you want to hurt yourself or someone else? Patient reports no desire to harm self or others. 22:26 Method Of Arrival: Wheelchair pf1 22:26 Acuity: TRAY 3 pf1 Triage Assessment: 12/12 00:00 General: Appears in no apparent distress. Behavior is cooperative, appropriate for age. bp Pain: Denies pain. EENT: No deficits noted. Neuro: Level of Consciousness is obeys commands, lethargic, Oriented to person. Historical: - Allergies: 12/11 23:32 PENICILLINS; pf1 - PMHx: 23:32 Dementia; DVT; Hypercholesterolemia; Hypertensive disorder; pf1 - PSHx: 23:32 None; pf1 - Immunization history:: Adult Immunizations up to date, Client reports receiving the 2nd dose of the Covid vaccine, Last tetanus immunization: > 10 years ago Flu vaccine is not up to date. - Social history:: Smoking status: Patient denies any tobacco usage or history of. Patient/guardian denies using alcohol, street drugs. - Family history:: not pertinent. Screenin/01 00:00 [facility] ED Fall Risk Assessment (Adult) History of falling in the last 3 months, bp including since admission No falls in past 3 months (0 pts). Abuse screen: Denies threats or abuse. Denies injuries from another. Nutritional screening: No deficits noted. Tuberculosis screening: No symptoms or risk factors identified. Assessment: 00:00 General: SEE TRIAGE NOTE. bp 01:43 Reassessment: ADMIT IN PROCESS. bp Vital Signs: 12/11 22:26 BP 192 / 99; Pulse 66; Resp 15; Temp 98.9; Pulse Ox 100% on R/A; Weight 47.4 kg; Height pf1 5 ft. 4 in. ; Pain 0/10; 12/12 00:42 BP 184 / 86; Pulse 78; Resp 16; Pulse Ox 100% ; bp 01:42 BP 201 / 110; Pulse 69; Resp 16; Pulse Ox 100% ; bp 03:00 BP 122 / 75; Pulse 89; Resp 15; Pulse Ox 100% ; bp 12/11 22:26 Body Mass Index 17.94 (47.40 kg, 162.56 cm) pf1 12/11 22:26 Pain Scale: Adult pf1 NIH Stroke Scale Scores: 00:00 NIHSS Score: 5 bp ED Course: 12/11 22:13 Patient arrived in ED. gm2 22:14 Greg Christine MD is Attending Physician. rt 22:27 Wilmar Mendieta, VERNON is Primary Nurse. bp 23:10 Missed attempt(s): 22 gauge in left forearm. pf1 23:20 Inserted saline lock: 24 gauge in right forearm, using aseptic technique. Blood bp collected. 23:27 XRAY Chest (1 view) In Process Unspecified. EDMS 23:32 Triage completed. pf1 23:44 CT Head Brain wo Cont In Process Unspecified. EDMS 12/12 00:00 Arm band placed on. bp 00:51 Paco Townsend MD is Hospitalizing Provider. rt 01:32 CT Head Angio In Process Unspecified. EDMS 01:32 CT Neck Angio In Process Unspecified. EDMS 02:23 No provider procedures requiring assistance completed. Patient admitted, IV remains in bp place. 02:24 Patient has correct armband on for positive identification. Bed in low position. Call bp light in reach. Side rails up X2. Adult w/ patient. Provided Education on: n/a. Administered Medications: 00:58 Drug: Aspirin PO Chewable Tablet 324 mg PO once; 81 mg tablets x 4 Route: PO; bp 02:12 Follow up: Response: No adverse reaction bp 02:05 Drug: hydrALAZINE IVP 10 mg IVP once Route: IVP; Site: right forearm; bp Outcome: 00:51 Decision to Hospitalize by Provider. rt 02:23 Admitted to ER Hold. Please see [facility] for further documentation. bp 02:23 Condition: stable 02:23 Instructed on the need for admit, 18:38 Admitted to Med/surg accompanied by tech, via stretcher, room 211, with chart, Report me1 called to VERNON Wallace 18:38 Instructed on the need for admit, 19:17 Patient left the ED. me1 NIH Stroke Scale - NIH Stroke Score Date: 12/12/2022 Time: 00:00 Total Score = 5 10. Dysarthria (speech clarity - read or repeat words) - 1(Mild to Moderate) 11. Extinction and Inattention (visual/tactile/auditory/spatial/personal) - 0(No abnormality) 1a. Level of Consciousness (LOC) - 1(Not Alert) 1b. Level of Consciousness (LOC) (Month \T\ Age) - 2(Neither) 1c. LOC Commands (Open \T\ Closes Eyes/Irrigation District Manager) - 0(Both) 2. Best Gaze (Lateral Gaze Paresis) - 0(Normal) 3. Visual Field Loss - 0(No visual loss) 4. Facial Palsy - 1(Minor Paralysis) 5a. Left Arm: Motor (10-second hold) - 0(No drift) 5b. Right Arm: Motor (10-second hold) - 0(No drift) 6a. Left Leg: Motor (5-second hold - always test supine) - 0(No drift) 6b. Right Leg: Motor (5-second hold - always test supine) - 0(No drift) 7. Limb Ataxia (finger/nose \T\ heel/lainez - test with eyes open) - 0(Absent) 8. Sensory Loss (pinprick arms/legs/face) - 0(Normal) 9. Best Language: Aphasia (description/naming/reading) - 0(No aphasia) Initials: bp Signatures: Dispatcher [employer] Wilmar Donald RN RN bp Greg Christine MD MD rt Taya Mcdaniels, RN RN pf1 Lizzy Aiken, RN RN me1 Judy Neely gm2
[2022-12-12] MEDS ORDERED: ASPIRIN 81 MG CHEWABLE TABLET ONE (01:05)
--- NOTE | 2022-12-12 02:17 | P.HP ---
Certification for Inpatient Patient admitted to: Inpatient With expected LOS: >2 Midnights Patient will require the following post-hospital care: None Practitioner: I am a practitioner with admitting privileges, knowledge of patient current condition, hospital course, and medical plan of care. Services: Services provided to patient in accordance with Admission requirements found in Title 42 Section 412.3 of the Code of Federal Regulations <Griffin Stephens - Last Filed: 12/12/22 02:14> Patient History Date of Service: 12/12/22 Reason for admission: AMS History of Present Illness: 87-year-old female with history of hypertension, hyperlipidemia, dementia presents to the emergency department chief complaint of altered mental status. Her daughter reports that she went to bed on Tuesday the at about 6 PM and when she woke up at around 5 AM on Tuesday the she was not at her baseline. She was missed naming people, objects, more confused than normal, reportedly leaning to the left had some questionable facial droop. She was brought to the emergency department for evaluation, she is outside the window for TNK. CT head without contrast negative for acute findings CTA of the head and neck negative for large vessel occlusion Labs overall unremarkable. ED provider wishes to admit patient for altered mental status, rule out CVA. NIH score is 4 currently. - Past Medical/Surgical History Diabetic: No -: Hypertension -: Hyperlipidemia -: DVT Past Surgical History: Unable to obtain Psychosocial/ Personal History: Patient lives at home with her daughter. - Family History Father -: Hypertension - Social History Smoking Status: Never smoker Alcohol use: No CD- Drugs: No Caffeine use: No Place of Residence: Home <Griffin Stephens - Last Filed: 12/12/22 02:14> Date of Service: 12/12/22 <Paco Townsend - Last Filed: 12/12/22 11:08> Allergies Penicillins Allergy (Verified 09/24/21 22:08) Anaphylaxis Home Medications: RX: Apixaban [Eliquis] 5 mg PO BID 09/24/21 RX: Donepezil HCl [Aricept] 10 mg PO BEDTIME 09/24/21 RX: Lisinopril [Zestril] 10 mg PO DAILY 09/24/21 RX: Nitrofuran Macro [Macrobid*] 100 mg PO BID #14 cap 09/25/21 Review of Systems Unremarkable <SherinpraneethGriffin Praneeth Ugo - Last Filed: 12/12/22 02:14> Physical Examination - Physical Exam General: Alert, In no apparent distress, Oriented x1 HEENT: Atraumatic, PERRLA, Mucous membr. moist/pink, EOMI, Sclerae nonicteric Neck: Supple, 2+ carotid pulse no bruit, No LAD, Without JVD or thyroid abnormal ity Respiratory: Clear to auscultation bilaterally, Normal air movement Cardiovascular: Regular rate/rhythm, Normal S1 S2 Gastrointestinal: Normal bowel sounds, No tenderness Musculoskeletal: No tenderness Integumentary: No rashes Neurological: Normal gait, Normal speech, Normal strength at 5/5 x4 extr, Normal tone, Normal affect, Other (NIH score is 4) - Studies Laboratory Data (last 24 hrs) 12/11/22 12/11/22 23:10 23:10 WBC 5.10 Hgb 11.6 L Hct 34.3 L Plt Count 151 L Sodium 142 Potassium 3.9 BUN 21 H Creatinine 0.90 Glucose 106 Magnesium 1.6 Total Bilirubin 0.4 AST 18 ALT 24 Alkaline Phosphatase 104 <SherinpraneethGriffin - Last Filed: 12/12/22 02:14> - Studies Laboratory Data (last 24 hrs) 12/11/22 12/11/22 23:10 23:10 WBC 5.10 Hgb 11.6 L Hct 34.3 L Plt Count 151 L Sodium 142 Potassium 3.9 BUN 21 H Creatinine 0.90 Glucose 106 Magnesium 1.6 Total Bilirubin 0.4 AST 18 ALT 24 Alkaline Phosphatase 104 <Paco Townsend - Last Filed: 12/12/22 11:08> Assessment and Plan - Plan Assessment: Altered mental status/rule out CVA Hypertension Hyperlipidemia Plan: Altered mental status/rule out CVA NIH score is 4, some questionable left-sided facial droop, no other unilateral deficits noted. Family reports patient more confused than normal, Ms. ghotra thinks she would commonly be able to identify. Patient does have underlying dementia so neurological exam is difficult. CT head without contrast negative for acute findings CT angio head and neck negative for large vessel occlusion. Given aspirin in ED. Neurology consult, MRI, echocardiogram, speech, physical therapy consult in place. No infectious findings thus far to explain symptoms. Could also be worsening of her dementia or possibly metabolic encephalopathy. Hypertension Hyperlipidemia Continue home medications. DVT PPX: Lovenox Code status: Full Discharge Plan: Home Plan to discharge in: 48 Hours - Advance Directives Does patient have a Living Will: No Does patient have a Durable POA for Healthcare: No - Code Status/Comfort Care Code Status Assessed: Yes (Full code) Critical Care: No Time Spent Managing Pts Care (In Minutes): 55 <Griffin Stephens - Last Filed: 12/12/22 02:14> Physician Review: Patient Assessed, Agree with Above Assessment and Plan Physician Review Additional Text: She is doing well this morning. She presented outside of the window for tenecteplase. Plan for MRI brain tomorrow morning. Appreciate Neurology recommendations. On my exam this morning: NIH Stroke Scale 1a. Level of consciousness: 0 - Alert; keenly responsive 1b. LOC questions: 1 - One question right 1c. LOC commands: 0 - Performs both tasks 2. Best Gaze: 0 - Normal 3. Visual: 0 - No visual loss 4. Facial Palsy: 1 - minor paralysis (flat nasolabial fold, smile asymmetry) 5a. Motor left arm: 0 - No drift for 10 seconds 5b. Motor right arm: 0 - No drift for 10 seconds 6a. Motor left le - No drift for 5 seconds 6b. Motor right le - No drift for 5 seconds 7. Limb ataxia: 0 - No ataxia 8. Sensory: 0 - Normal; no sensory loss 9. Best Language: 0 - Normal; no aphasia 10. Dysarthria: 1 -mildmoderate dysarthria: Slurring but can be understood 11. Extinction and Inattention: 0 - No abnormality 12. Distal motor function: 0 - No abnormality Total Score: 3 <Paco Townsend - Last Filed: 12/12/22 11:08>
[2022-12-12] MEDS ORDERED: ONDANSETRON 4 MG/2 ML VIAL IV PRN (02:19)
[2022-12-12] MEDS ORDERED: HYDRALAZINE HCL 20 MG/ML VIAL IV PRN (02:19)
[2022-12-12] MEDS ORDERED: HYDRALAZINE HCL 20 MG/ML VIAL ONE (02:22)
[2022-12-12 05:51] LABS: Absolute Lymphocytes (CBC) 1.3 K/uL (0.7-4.9); Hematocrit 35.5 % (36.0-45.0); Lymphocytes % 23.7 % (15.3-44.8); MCV 94.7 fL (80-100); MPV 8.7 fL (7.6-11.3); Platelets 165 thou/uL (152-406); RBC Red Blood Cell Count 3.75 M/uL (3.86-4.86)
[2022-12-12 06:11] LABS: Potassium 3.4 mEq/L (3.5-5.1); T4,Total 7.7 ug/dL (4.8-13.9); Thyroid Stimulating Hormone 2.42 uIU/mL (0.358-3.740)
[2022-12-12] MEDS: ASPIRIN EC 81 MG TAB PO SCH (09:00)
[2022-12-12] MEDS: NA CHLORIDE 0.9% 1,000 ML IV SCH ×3 (09:10→19:30)
[2022-12-12 09:44] VITALS: BMI 17.4
[2022-12-12] MEDS ORDERED: ASPIRIN EC 81 MG TAB PO ONE (10:02)
[2022-12-12] MEDS ORDERED: NA CHLORIDE 0.9% 1,000 ML ONE (10:02)
[2022-12-12] MEDS: FOLIC ACID 1 MG TABLET PO SCH (11:00)
[2022-12-12] MEDS: ENOXAPARIN 40 MG/0.4 ML SQ SCH (12:00)
--- NOTE | 2022-12-12 14:40 | EKG ---
Test Date: 2022-12-11 Test Time: 22:52:33 Rock Contractor: DEMETRIO MEASUREMENT RESULTS: Intervals: Rate: 59 UT: 308 QRSD: 144 QT: 438 QTc: 433 [place]: P: 39 UT: 308 QRS: -21 T: 17 INTERPRETIVE STATEMENTS: Sinus bradycardia with 1st degree AV block Right bundle branch block Abnormal ECG Compared to ECG 10/03/2021 15:20:41 Sinus rhythm no longer present Electronically Signed On 12-12-22 14:40:17 CDT by Levar Brandt
[2022-12-12] MEDS ORDERED: FOLIC ACID 1 MG TABLET ONE (17:59)
[2022-12-12] MEDS ORDERED: ENOXAPARIN 40 MG/0.4 ML SQ ONE (17:59)
[2022-12-12] MEDS ORDERED: ATORVASTATIN 20 MG TAB PO SCH (21:00)
[2022-12-13 03:08] LABS: Absolute Lymphocytes (CBC) 2.5 K/uL (0.7-4.9); Hematocrit 30.2 % (36.0-45.0); Lymphocytes % 52.8 % (15.3-44.8); MCV 95.9 fL (80-100); MPV 8.9 fL (7.6-11.3); Platelets 153 thou/uL (152-406); RBC Red Blood Cell Count 3.15 M/uL (3.86-4.86)
[2022-12-13 03:28] LABS: Potassium 3.5 mEq/L (3.5-5.1)
--- NOTE | 2022-12-13 05:24 | P.PN ---
Date of Service: 12/13/22 Subjective: Patient is doing well no new complaints. Altered mentation is stable. No neurologic deficits noted. Physical Exam: Vitals: reviewed GEN: Alert, orientedx1, confused CV: Regular rate & rhythm, no edema Pulm: Nonlabored respiraitons, clear bilaterally ABD: Soft, nontender, nondistended MSK: No joint tenderness Neuro: NIH score is 4. Difficult to fully obtain Problem List: AMS / rule out CVA Hypertension Hyperlipidemia Dementia PLAN 1. MRI of the brain reviewed 2. Echocardiogram and carotid Doppler reviewed 3. Anti-platelet therapy and statin therapy 4. Neurology consultation appreciated 5. Physical therapy/occupational therapy/speech therapy evaluation 6. Modified barium swallow study 7. DVT prophylaxis
[2022-12-13] MEDS: lisinopriL 10 MG TAB PO SCH (08:53)
[2022-12-13] MEDS: ATORVASTATIN 20 MG TAB PO SCH (08:53)
[2022-12-13] MEDS: FOLIC ACID 1 MG TABLET PO SCH (08:53)
[2022-12-13] MEDS: ASPIRIN EC 81 MG TAB PO SCH (08:53)
[2022-12-13] MEDS: NA CHLORIDE 0.9% 1,000 ML IV SCH (08:57)
[2022-12-13] MEDS: ENOXAPARIN 40 MG/0.4 ML SQ SCH (09:02)
--- NOTE | 2022-12-13 10:37 | RAD REPORT ---
EXAM DESCRIPTION: MRI - Brain Wo Cont - 12/13/2022 9:53 am CLINICAL HISTORY: Confusion/alteration consciousness COMPARISON: Head CT December 11, 2022 and 2019 MRI TECHNIQUE: Axial, sagittal, and coronal magnetic resonance images of the brain were obtained. FINDINGS: Mild to moderate signal within periventricular, deep and subcortical white matter probably ischemic changes secondary to small vessel disease. Patchy signal brainstem is chronic. Mild to mode rate cerebral atrophy Diffusion-weighted/ADC mapping does not reveal evidence of acute infarction. Prominence of ventricles without significant change from 2019 likely the sequela atrophy An extra-axial fluid collection is not noted. Fluid within the sinuses/mastoids is not seen IMPRESSION: No acute intracranial abnormality noted
[2022-12-13] MEDS ORDERED: CYANOCOBALAMIN 1000MCG/ML INJ IM ONE (16:12)
[2022-12-13] MEDS ORDERED: DONEPEZIL HCL 5 MG TAB PO SCH (21:00)
[2022-12-14] MEDS: NA CHLORIDE 0.9% 1,000 ML IV SCH ×2 (00:57→08:20)
[2022-12-14 01:35] VITALS: O2SAT 98
[2022-12-14] MEDS: FOLIC ACID 1 MG TABLET PO SCH (08:50)
[2022-12-14] MEDS: ASPIRIN EC 81 MG TAB PO SCH (08:50)
[2022-12-14] MEDS: lisinopriL 10 MG TAB PO SCH (08:50)
[2022-12-14] MEDS: ATORVASTATIN 20 MG TAB PO SCH (08:50)
[2022-12-14] MEDS ORDERED: ENOXAPARIN 30 MG/0.3 ML SQ SCH (09:00)
--- NOTE | 2022-12-14 10:10 | RAD REPORT ---
EXAM DESCRIPTION: CT - Head Brain Wo Cont - 12/12/2022 6:44 am CLINICAL HISTORY: 87 years Female, ams TECHNIQUE: Helical CT axial images are obtained from the base of skull through the vertex without IV contrast. Multiplanar reconstruction. This exam was performed according to our departmental dose-opt imization program, which includes automated exposure control, adjustment of the mA and/or kV accordin g to patient size and/or use of iterative reconstruction technique. COMPARISON: September 24, 2021 FINDINGS: BRAIN: No infarcts. No parenchymal hemorrhage, intra-axial mass, mass effect, or midline s hift. No abnormal extra-axial fluid collections. Mild periventricular white matter hypodensities. VENTRICLES: Moderate diffuse parenchymal atrophy with compensatory increase size of CSF spaces. No hy drocephalus. CALVARIUM: Hyperostosis interna frontalis, normal variant.. Bone windows show no skull fracture or ca lvarial lesions. PARANASAL SINUSES AND MASTOIDS: Visualized paranasal sinuses are clear. Mastoid air cells are clear . IMPRESSION: 1. No acute intracranial disease. 2. Mild chronic small vessel ischemic white matter changes. Moderate atrophy. 3. No significant interval change. Electronically signed by: Deon Munson MD 12/12/2022 12:01 AM CDT Due to temporary technical issues with the PACS/Fluency reporting system, reports are being signed by the in house radiologists without review as a courtesy to insure prompt reporting. The interpreting radiologist is fully responsible for the content of the report
--- NOTE | 2022-12-14 10:12 | RAD REPORT ---
EXAM DESCRIPTION: CT - Head angio - 12/12/2022 6:43 am CLINICAL HISTORY: Left facial droop, ams, aphasia COMPARISON: Correlation is made with a prior noncontrast CT of the head TECHNIQUE: Contiguous axial images obtained through the head and neck following the uneventful admin istration of IV contrast. Sagittal and coronal reformatted images were provided. Multiplanar 3-D MIP reformatted images were provided. NASCET criteria utilized for the evaluation of any stenotic lesions . This exam was performed according to our departmental dose-optimization program, which includes autom ated exposure control, adjustment of the mA and/or kV according to patient size and/or use of iterati ve reconstruction technique. FINDINGS: Head: ICA: Atherosclerotic plaque along the cavernous segment of the intracranial internal carotid arteries with mild to moderate stenosis. Widely patent symmetric supraclinoid projection of the ICAs bilatera lly. MARCEL: No occlusion or significant stenosis. No aneurysm. No dissection. 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 MCA: No occlusion or significant stenosis. No aneurysm. No dissection. GRAIN MERCHANDISER: No occlusion or significant stenosis. No aneurysm. No dissection. Basilar artery: No occlusion or significant stenosis. No aneurysm. No dissection. Neck: ICA: No occlusion or significant stenosis. No aneurysm. No dissection. ECA: No occlusion or significant stenosis. No aneurysm. No dissection. CCA: No occlusion or significant stenosis. No aneurysm. No dissection. Aortic arch: No aneurysm. No dissection. Vertebral arteries: No occlusion or significant stenosis. No aneurysm. No dissection. Brain: No focal mass effect. No areas of abnormal parenchymal enhancement. Bones: Unremarkable Soft tissues: Unremarkable Lung apices: Clear IMPRESSION: 1. Atherosclerotic plaque along the cavernous segment of the intracranial internal car otid arteries with mild to moderate stenosis. 2. No other hemodynamically significant stenosis, occlusion, or aneurysm is identified within the h ead or neck. 3. No abnormal brain parenchymal enhancement. Electronically signed by: Charbel Winkler MD 12/12/2022 1:57 AM CDT Due to temporary technical issues with the PACS/Fluency reporting system, reports are being signed by the in house radiologists without review as a courtesy to insure prompt reporting. The interpreting radiologist is fully responsible for the content of the report
--- NOTE | 2022-12-14 10:14 | RAD REPORT ---
EXAM DESCRIPTION: CT - Neck Angio - 12/12/2022 6:43 am CLINICAL HISTORY: Left facial droop, ams, aphasia COMPARISON: Correlation is made with a prior noncontrast CT of the head TECHNIQUE: Contiguous axial images obtained through the head and neck following the uneventful admin istration of IV contrast. Sagittal and coronal reformatted images were provided. Multiplanar 3-D MIP reformatted images were provided. NASCET criteria utilized for the evaluation of any stenotic lesions . This exam was performed according to our departmental dose-optimization program, which includes autom ated exposure control, adjustment of the mA and/or kV according to patient size and/or use of iterati ve reconstruction technique. FINDINGS: Head: ICA: Atherosclerotic plaque along the cavernous segment of the intracranial internal carotid arteries with mild to moderate stenosis. Widely patent symmetric supraclinoid projection of the ICAs bilatera lly. MARCEL: No occlusion or significant stenosis. No aneurysm. No dissection. 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 MCA: No occlusion or significant stenosis. No aneurysm. No dissection. ESCALATOR MECHANIC: No occlusion or significant stenosis. No aneurysm. No dissection. Basilar artery: No occlusion or significant stenosis. No aneurysm. No dissection. Neck: ICA: No occlusion or significant stenosis. No aneurysm. No dissection. ECA: No occlusion or significant stenosis. No aneurysm. No dissection. CCA: No occlusion or significant stenosis. No aneurysm. No dissection. Aortic arch: No aneurysm. No dissection. Vertebral arteries: No occlusion or significant stenosis. No aneurysm. No dissection. Brain: No focal mass effect. No areas of abnormal parenchymal enhancement. Bones: Unremarkable Soft tissues: Unremarkable Lung apices: Clear IMPRESSION: 1. Atherosclerotic plaque along the cavernous segment of the intracranial internal car otid arteries with mild to moderate stenosis. 2. No other hemodynamically significant stenosis, occlusion, or aneurysm is identified within the h ead or neck. 3. No abnormal brain parenchymal enhancement. Electronically signed by: Charbel Winkler MD 12/12/2022 1:57 AM CDT Due to temporary technical issues with the PACS/Fluency reporting system, reports are being signed by the in house radiologists without review as a courtesy to insure prompt reporting. The interpreting radiologist is fully responsible for the content of the report
--- NOTE | 2022-12-14 13:04 | RAD REPORT ---
EXAM DESCRIPTION: RAD - Chest Single View - 12/11/2022 11:25 pm CLINICAL HISTORY: The patient is 87 years old and is Female; ams TECHNIQUE: Frontal view of the chest. COMPARISON: November 01, 2021 FINDINGS: Lungs: No acute infiltrate. Pleural space: No pleural effusion or pneumothorax. Heart: No cardiomegaly. Mediastinum: Tortuous descending aorta. Bones/joints: Bilateral shoulder arthritis. High riding humeri, most likely with degenerative tea r of bilateral rotator cuff. IMPRESSION: 1. No acute infiltrate. 2. Tortuous descending aorta. Electronically signed by: Shari Lawler MD 12/11/2022 11:46 PM CDT Due to temporary technical issues with the PACS/Fluency reporting system, reports are being signed by the in house radiologists without review as a courtesy to insure prompt reporting. The interpreting radiologist is fully responsible for the content of the report.
--- NOTE | 2022-12-14 13:37 | ECHO ---
HEIGHT: 5 ft 5 in WEIGHT: 105 lb 0 oz DATE OF STUDY: 12/14/[address]: Griffin Stephens NP 2-DIMENSIONAL: YES M.MODE: YES DOPPLER: YES COLOR FLOW: YES TDS: PORTABLE: YES DEFINITY: BUBBLE STUDY: DIAGNOSIS: STROKE CARDIAC HISTORY: CATHERIZATION: NO SURGERY: NO PROSTHETIC VALVE: NO PACEMAKER: NO MEASUREMENTS (cm) DIASTOLIC (NORMALS) SYSTOLIC (NORMALS) IVSd 1.0 (0.6-1.2) LA Diam 2.4 (1.9-4.0) LVEF 68% LVIDd 4.2 (3.5-5.7) LVIDs 2.6 (2.0-3.5) %FS 38% LVPWd 1.0 (0.6-1.2) Ao Diam 2.5 (2.0-3.7) 2 DIMENSIONAL ASSESSMENT: RIGHT ATRIUM: NORMAL LEFT ATRIUM: NORMAL RIGHT VENTRICLE: NORMAL LEFT VENTRICLE: NORMAL TRICUSPID VALVE: MILD TRICUSPID REGURGITATION MITRAL VALVE: MILD AORTIC INSUFFICIENCY PULMONIC VALVE: MILD PULMONIC INSUFFICIENCY AORTIC VALVE: MILD AORTIC INSUFFICIENCY PERICARDIAL EFFUSION: NONE AORTIC ROOT: NORMAL LEFT VENTRICULAR WALL MOTION: NORMAL DOPPLER/COLOR FLOW: SEE BELOW COMMENTS: 1. NORMAL LEFT VENTRICULAR EJECTION FRACTION 60-65% WITH NORMAL WALL MOTION 2. GRADE I DIASTOLIC DYSFUNCTION 3. MILD AORTIC INSUFFICIENCY, TRICUSPID REGURGITATION, PULMONIC INSUFFICIENCY TECHNOLOGIST: MARLENY PATEL
[2022-12-14 21:17] VITALS: BP 166/78; TEMP 99
--- NOTE | 2022-12-24 23:37 | P.DS ---
Discharge Date: 12/14/22 Disposition: TRANSFER TO INPATIENT REHAB Discharge Condition: GOOD Reason for Admission: AMS Brief History of Present Illness: Patient is an 87-year-old female with history of hypertension, hyperlipidemia, dementia presents to the emergency department chief complaint of altered mental status. Her daughter reports that she went to bed on Tuesday the at about 6 PM and when she woke up at around 5 AM on Tuesday she was not at her baseline. She was missed naming people, objects, more confused than normal, reportedly leaning to the left had some questionable facial droop. She was brought to the emergency department for evaluation, she is outside the window for TNK. CT head without contrast negative for acute findings CTA of the head and neck negative for large vessel occlusion Labs overall unremarkable. ED pro vider wishes to admit patient for altered mental status, rule out CVA. NIH score is 4 currently. Hospital Course: Patient had multiple diagnostic studies including MRI of the brain which is negative. Echocardiogram did not reveal any significant abnormality. Patient doing well and clinically patient is stable for discharge with outpatient follow-up. Continue with Diflucan as well. Vital Signs/Physical Exam: Temp Pulse Resp BP Pulse Ox 99.0 F 76 18 166/78 H 99 12/14/22 20:00 12/14/22 20:00 12/14/22 20:00 12/14/22 20:00 12/14/22 20:00 General: Alert, In no apparent distress, Oriented x3 Laboratory Data at Discharge: WBC 4.80 thou/uL (4.3-10.9) 12/13/22 02:22 Hgb 10.2 g/dL (12.0-15.0) L D 12/13/22 02:22 Hct 30.2 % (36.0-45.0) L 12/13/22 02:22 Plt Count 153 thou/uL (152-406) 12/13/22 02:22 Sodium 141 mEq/L (136-145) 12/13/22 02:22 Potassium 3.5 mEq/L (3.5-5.1) 12/13/22 02:22 BUN 25 mg/dL (7-18) H 12/13/22 02:22 Creatinine 1.05 mg/dL (0.55-1.02) H 12/13/22 02:22 Glucose 86 mg/dL (74-106) 12/13/22 02:22 Magnesium 1.6 mg/dL (1.6-2.4) 12/11/22 23:10 Total Bilirubin 0.4 mg/dL (0.2-1.0) 12/11/22 23:10 AST 18 U/L (15-37) 12/11/22 23:10 ALT 24 U/L (13-56) 12/11/22 23:10 Alkaline Phosphatase 104 U/L (45-117) 12/11/22 23:10 Triglycerides 37 mg/dL (<150) 12/12/22 05:35 Cholesterol 156 mg/dL (<200) 12/12/22 05:35 HDL Cholesterol 90 mg/dL (40-60) H 12/12/22 05:35 Cholesterol/HDL Ratio 1.73 12/12/22 05:35 Home Medications: Lisinopril [Zestril] 10 mg PO DAILY 09/24/21 Atorvastatin Calcium [Lipitor*] 20 mg PO DAILY 12/12/22 Donepezil HCl [Aricept] 5 mg PO BEDTIME 12/13/22 Fluconazole [Diflucan] 100 mg PO DAILY #7 tab 12/14/22 New Medications: Fluconazole [Diflucan] 100 mg PO DAILY #7 tab Physician Discharge Instructions: Pt is a discharge to inpatient rehab[facility] Diet: Regular Activity: Fall precautions Time spent managing pt's care (in minutes): 35
== END 2022-12-14 20:21 | DRG 948 ==
LOC: ER 22:01 → ERHOLD 12-12 02:01 → 2ND 12-12 18:39
PROVIDERS: ADMIT Internal Medicine; ATTEND Hospitalist
DX: R41.82 Altered mental status, unspecified (principal); I10 Essential (primary) hypertension; E78.00 Pure hypercholesterolemia, unspecified; F03.90 Unspecified dementia, unspecified severity, without behavioral disturbance, psychotic disturbance, mood disturbance, and anxiety; R29.705 NIHSS score 5; R29.810 Facial weakness; Z88.0 Allergy status to penicillin; Z86.718 Personal history of other venous thrombosis and embolism; Z79.899 Other long term (current) drug therapy
CPT/HCPCS: 36415; 70450; 70496; 70498; 70551; 71045; 80048; 80061; 80076; 81001; 82140; 82607; 83036; 83735; 84436; 84443; 84484; 85025; 92523; 93005; 93306; 96374; 97116; 97161; 97530; 99285; J0360; J1650; J3420; J7030; Q9967